=== PATIENT | male | born 1950 | race Caucasian/White ===

== ENCOUNTER 2020-07-09 13:52 | Outpatient (REF) | payer MEDICARE, SELFPAY ==
[2020-07-09 14:48] LABS: MANUAL DIFF FLAG NO
[2020-07-09 15:03] LABS: Basophils Absolute Auto 0.1 X10*3/uL (0.0-0.2); Basophils Percent Auto 0.6 % (0-2); Eosinophils Percent Auto 0.3 % (0-4); Hematocrit 43.6 % (42-52); Hemoglobin 14.7 g/dl (14.0-18.0); Imm Gran Abs Auto 0.04 X10*3/uL (0.00-0.03); Imm Gran Pct Auto 0.5 % (0.0-0.4); Lymphocytes Absolute Auto 1.4 X10*3/uL (1.2-4.9); Lymphocytes Percent Auto 17.8 % (20-40); Mean Corpuscular HGB Conc 33.7 g/dl (31.0-36.0); Mean Corpuscular Hemoglobin 33.9 pg (27.0-33.0); Mean Corpuscular Volume 100.5 fL (80-98); Mean Platelet Volume 10.1 fL (9.4-12.4); Monocytes Percent Auto 12.1 % (2-11); Neutrophils Absolute Auto 5.4 X10*3/uL (2.0-8.3); Neutrophils Percent Auto 68.7 % (45-73); Platelet Count 345 X10*3/uL (160-400); Red Blood Count 4.34 X10*6/uL (4.60-5.80); Red Cell Distribution Width 12.9 % (11.0-16.0); White Blood Count 7.9 X10*3/uL (4.8-10.8)
[2020-07-09 15:07] LABS: Estimated Average Glucose 103 mg/dL; Hemoglobin A1c % 5.2 %
[2020-07-09 15:12] LABS: Alanine Aminotransferase 51 U/L (0-40); Albumin Level 4.3 g/dL (3.5-5.0); Alkaline Phosphatase 55 U/L (39-117); Anion Gap 12 (12-20); Aspartate Amino Transferase 59 U/L (5-37); Bilirubin Total 0.5 mg/dL (0.0-1.0); Blood Urea Nitrogen 8 mg/dL (9-16); Calcium 9.3 mg/dL (8.4-10.2); Carbon Dioxide 28 mmol/L (22-29); Chloride 101 mmol/L (96-108); Cholesterol 150 mg/dL; Estimated Glomerular Filt Rate > 60; Glucose Random 84 mg/dL (60-115); HDL Cholesterol 80 mg/dL; LDL Cholesterol Calculated 52 mg/dl; Potassium 5.2 mmol/l (3.3-5.1); Sodium 136 mmol/L (135-145); Total Protein 6.9 g/dL (6.5-8.0); Triglycerides 93 mg/dL
[2020-07-09 15:36] LABS: Prostate Specific Antigen 0.77 ng/mL (<0.05-4.0); Thyroid Stimulating Hormone 1.23 mIU/mL (0.32-4.0)
== END 2020-07-09 13:53 | disposition home or self-care (01) ==
LOC: HO.LAB 13:52
PROVIDERS: PCP Internal Medicine; Visit Provider Internal Medicine
DX: E78.00 Pure hypercholesterolemia, unspecified (principal); I10 Essential (primary) hypertension; R73.01 Impaired fasting glucose; R74.01 Elevation of levels of liver transaminase levels; Z86.010 Personal history of colon polyps
CPT/HCPCS: 36415; 80053; 80061; 83036; 84153; 84443; 85025

== ENCOUNTER 2020-12-26 14:38 | Outpatient (REF) | payer MEDICARE, SELFPAY ==
[2020-12-26 15:55] LABS: Alanine Aminotransferase 36 U/L (0-40); Albumin Level 4.3 g/dL (3.5-5.0); Alkaline Phosphatase 45 U/L (39-117); Anion Gap 13 (12-20); Aspartate Amino Transferase 32 U/L (5-37); Bilirubin Total 0.7 mg/dL (0.0-1.0); Blood Urea Nitrogen 8 mg/dL (9-16); Calcium 9.4 mg/dL (8.4-10.2); Carbon Dioxide 27 mmol/L (22-29); Chloride 102 mmol/L (96-108); Estimated Glomerular Filt Rate > 60; Glucose Random 105 mg/dL (60-115); Potassium 4.7 mmol/L (3.3-5.1); Sodium 137 mmol/L (135-145); Total Protein 7.1 g/dL (6.5-8.0)
== END 2020-12-26 14:39 | disposition home or self-care (01) ==
LOC: HO.LAB 14:38
PROVIDERS: PCP Internal Medicine; Visit Provider Internal Medicine
DX: E78.00 Pure hypercholesterolemia, unspecified (principal); I10 Essential (primary) hypertension; R74.01 Elevation of levels of liver transaminase levels
CPT/HCPCS: 36415; 80053

== ENCOUNTER 2021-07-09 13:40 | Outpatient (REF) | payer MEDICARE, SELFPAY ==
[2021-07-09 13:52] LABS: MANUAL DIFF FLAG NO
[2021-07-09 14:43] LABS: Basophils Absolute Auto 0.1 X10*3/uL (0.0-0.2); Basophils Percent Auto 0.5 % (0-2); Eosinophils Percent Auto 0.1 % (0-4); Hematocrit 45.3 % (42-52); Hemoglobin 15.5 g/dl (14.0-18.0); Imm Gran Abs Auto 0.04 X10*3/uL (0.00-0.03); Imm Gran Pct Auto 0.4 % (0.0-0.4); Lymphocytes Absolute Auto 1.3 X10*3/uL (1.2-4.9); Lymphocytes Percent Auto 13.6 % (20-40); Mean Corpuscular HGB Conc 34.2 g/dl (31.0-36.0); Mean Corpuscular Hemoglobin 34.4 pg (27.0-33.0); Mean Corpuscular Volume 100.4 fL (80-98); Mean Platelet Volume 10.3 fL (9.4-12.4); Monocytes Absolute Auto 1.1 X10*3/uL (0.1-1.2); Monocytes Percent Auto 11.5 % (2-11); Neutrophils Absolute Auto 7.1 X10*3/uL (2.0-8.3); Neutrophils Percent Auto 73.9 % (45-73); Platelet Count 389 X10*3/uL (160-400); Red Blood Count 4.51 X10*6/uL (4.60-5.80); Red Cell Distribution Width 13.2 % (11.0-16.0); White Blood Count 9.6 X10*3/uL (4.8-10.8)
[2021-07-09 15:02] LABS: Alanine Aminotransferase 139 U/L (0-40); Albumin Level 4.3 g/dL (3.5-5.0); Alkaline Phosphatase 57 U/L (39-117); Anion Gap 16 (12-20); Aspartate Amino Transferase 123 U/L (5-37); Blood Urea Nitrogen 11 mg/dL (9-16); Calcium 9.4 mg/dL (8.4-10.2); Carbon Dioxide 25 mmol/L (22-29); Chloride 101 mmol/L (96-108); Cholesterol 213 mg/dL; Estimated Glomerular Filt Rate > 60; Glucose Random 101 mg/dL (60-115); HDL Cholesterol 56 mg/dL; LDL Cholesterol Calculated 87 mg/dl; Potassium 4.5 mmol/L (3.3-5.1); Sodium 137 mmol/L (135-145); Total Protein 7.3 g/dL (6.5-8.0); Triglycerides 354 mg/dL
== END 2021-07-09 13:41 | disposition home or self-care (01) ==
LOC: HO.LAB 13:40
PROVIDERS: PCP Internal Medicine; Visit Provider Internal Medicine
DX: E78.00 Pure hypercholesterolemia, unspecified (principal); F10.20 Alcohol dependence, uncomplicated; F17.211 Nicotine dependence, cigarettes, in remission; I10 Essential (primary) hypertension; R74.01 Elevation of levels of liver transaminase levels
CPT/HCPCS: 36415; 80053; 80061; 85025

== ENCOUNTER 2021-12-24 11:51 | Outpatient (REF) | payer MEDICARE, SELFPAY ==
[2021-12-24 13:03] LABS: Alanine Aminotransferase 41 U/L (0-40); Albumin Level 4.2 g/dL (3.5-5.0); Alkaline Phosphatase 69 U/L (39-117); Anion Gap 11 (12-20); Aspartate Amino Transferase 36 U/L (5-37); Bilirubin Total 0.4 mg/dL (0.0-1.0); Blood Urea Nitrogen 6 mg/dL (9-16); Calcium 9.7 mg/dL (8.4-10.2); Carbon Dioxide 29 mmol/L (22-29); Chloride 102 mmol/L (96-108); Cholesterol 145 mg/dL; Estimated Glomerular Filt Rate > 60; Glucose Random 80 mg/dL (60-115); HDL Cholesterol 57 mg/dL; LDL Cholesterol Calculated 56 mg/dl; Potassium 4.5 mmol/L (3.3-5.1); Sodium 137 mmol/L (135-145); Triglycerides 164 mg/dL
[2021-12-24 13:34] LABS: Vitamin B12 199 pg/mL (200-900)
[2021-12-25 08:18] LABS: HBsAGNum1 0.17 S/CO (0.00-0.99); Hepatitis A Antibody IgM 0.24 Index (0-0.79); Hepatitis B Surface Antigen Negative (Negative); ~Hepatitis A Antibody IgM Nonreactive (Nonreactive)
[2021-12-25 08:36] LABS: HBc Num1 0.06 S/CO (0.00-0.79); Hepatitis B Core Antibody Nonreactive (Nonreactive); ~HepC Num1 0.18 S/CO (0.00-0.79); ~Hepatitis B Surface Antibody NONREACTIVE (Nonreactive); ~Hepatitis C Antibody Nonreactive (Nonreactive)
== END 2021-12-24 11:52 | disposition home or self-care (01) ==
LOC: HO.LAB 11:51
PROVIDERS: PCP Internal Medicine; Visit Provider Internal Medicine
DX: E78.2 Mixed hyperlipidemia (principal); F10.10 Alcohol abuse, uncomplicated; F17.211 Nicotine dependence, cigarettes, in remission; I10 Essential (primary) hypertension; R74.01 Elevation of levels of liver transaminase levels
CPT/HCPCS: 36415; 80053; 80061; 82607; 86704; 86706; 86709; 86803; 87340

== ENCOUNTER 2022-07-05 11:42 | Outpatient (REF) | payer MEDICARE, SELFPAY ==
[2022-07-05 11:58] LABS: MANUAL DIFF FLAG NO
[2022-07-05 12:57] LABS: Basophils Percent Auto 0.4 % (0-2); Eosinophils Absolute Auto 0.1 X10*3/uL (0.0-0.4); Eosinophils Percent Auto 0.7 % (0-4); Hematocrit 46.7 % (42.0-52.0); Hemoglobin 15.7 g/dl (14.0-18.0); Imm Gran Abs Auto 0.06 X10*3/uL (0.00-0.03); Imm Gran Pct Auto 0.7 % (0.0-0.4); Lymphocytes Absolute Auto 1.5 X10*3/uL (1.2-4.9); Lymphocytes Percent Auto 16.6 % (20-40); Mean Corpuscular HGB Conc 33.6 g/dl (31.0-36.0); Mean Corpuscular Hemoglobin 34.7 pg (27.0-33.0); Mean Corpuscular Volume 103.1 fL (80.0-98.0); Mean Platelet Volume 10.8 fL (9.4-12.4); Monocytes Absolute Auto 1.4 X10*3/uL (0.1-1.2); Monocytes Percent Auto 15.5 % (2-11); Neutrophils Absolute Auto 5.9 x10*3/uL (2.0-8.3); Neutrophils Percent Auto 66.1 % (45-73); Platelet Count 413 X10*3/uL (160-400); Red Blood Count 4.53 X10*6/uL (4.60-5.80); White Blood Count 8.9 X10*3/uL (4.8-10.8)
[2022-07-05 13:33] LABS: Alanine Aminotransferase 33 U/L (0-40); Albumin Level 4.3 g/dL (3.5-5.0); Alkaline Phosphatase 53 U/L (39-117); Anion Gap 17 (12-20); Aspartate Amino Transferase 36 U/L (5-37); Bilirubin Total 0.3 mg/dL (0.0-1.0); Blood Urea Nitrogen 6 mg/dL (9-16); Calcium 9.6 mg/dL (8.4-10.2); Carbon Dioxide 25 mmol/L (22-29); Chloride 103 mmol/L (96-108); Cholesterol 146 mg/dL; Estimated Glomerular Filt Rate > 60; Glucose Random 89 mg/dL (60-115); HDL Cholesterol 65 mg/dL; LDL Cholesterol Calculated 54 mg/dl; Potassium 4.5 mmol/L (3.3-5.1); Sodium 140 mmol/L (135-145); Total Protein 7.2 g/dL (6.5-8.0); Triglycerides 137 mg/dL
[2022-07-05 13:57] LABS: Reflex LDLD? No
[2022-07-05 14:11] LABS: Vitamin B12 683 pg/mL (200-900)
== END 2022-07-05 11:43 | disposition home or self-care (01) ==
LOC: HO.LAB 11:42
PROVIDERS: PCP Internal Medicine; Visit Provider Internal Medicine
DX: Z12.5 Encounter for screening for malignant neoplasm of prostate (principal); D51.8 Other vitamin B12 deficiency anemias; E78.2 Mixed hyperlipidemia; I10 Essential (primary) hypertension; R74.01 Elevation of levels of liver transaminase levels
CPT/HCPCS: 36415; 80053; 80061; 82607; 84153; 85025

== ENCOUNTER 2022-12-20 11:41 | Outpatient (REF) | payer MEDICARE, SELFPAY ==
[2022-12-20 11:53] LABS: MANUAL DIFF FLAG NO
[2022-12-20 12:18] LABS: Basophils Absolute Auto 0.1 X10*3/uL (0.0-0.2); Basophils Percent Auto 0.7 % (0-2); Eosinophils Absolute Auto 0.1 X10*3/uL (0.0-0.4); Eosinophils Percent Auto 1.1 % (0-4); Hematocrit 45.6 % (42.0-52.0); Hemoglobin 15.4 g/dl (14.0-18.0); Imm Gran Abs Auto 0.05 X10*3/uL (0.00-0.03); Imm Gran Pct Auto 0.7 % (0.0-0.4); Lymphocytes Absolute Auto 1.5 X10*3/uL (1.2-4.9); Lymphocytes Percent Auto 21.1 % (20-40); Mean Corpuscular HGB Conc 33.8 g/dl (31.0-36.0); Mean Corpuscular Hemoglobin 34.9 pg (27.0-33.0); Mean Corpuscular Volume 103.4 fL (80.0-98.0); Mean Platelet Volume 9.7 fL (9.4-12.4); Monocytes Percent Auto 13.6 % (2-11); Neutrophils Absolute Auto 4.5 x10*3/uL (2.0-8.3); Neutrophils Percent Auto 62.8 % (45-73); Platelet Count 350 X10*3/uL (160-400); Red Blood Count 4.41 X10*6/uL (4.60-5.80); Red Cell Distribution Width 13.5 % (11.0-16.0); White Blood Count 7.1 X10*3/uL (4.8-10.8)
[2022-12-20 14:29] LABS: Alanine Aminotransferase 34 U/L (0-40); Albumin Level 3.8 g/dL (3.5-5.0); Alkaline Phosphatase 66 U/L (39-117); Anion Gap 13 (12-20); Aspartate Amino Transferase 35 U/L (5-37); Bilirubin Total 0.4 mg/dL (0.0-1.0); Blood Urea Nitrogen 8 mg/dL (9-16); Calcium 9.3 mg/dL (8.4-10.2); Carbon Dioxide 29 mmol/L (22-29); Chloride 104 mmol/L (96-108); Estimated Glomerular Filt Rate > 60; Glucose Random 138 mg/dL (60-115); Potassium 3.9 mmol/L (3.3-5.1); Sodium 142 mmol/L (135-145); Total Protein 6.7 g/dL (6.5-8.0)
== END 2022-12-20 11:42 | disposition home or self-care (01) ==
LOC: HO.LAB 11:41
PROVIDERS: PCP Internal Medicine; Visit Provider Internal Medicine
DX: D75.89 Other specified diseases of blood and blood-forming organs (principal); E78.00 Pure hypercholesterolemia, unspecified; I10 Essential (primary) hypertension; Z13.31 Encounter for screening for depression; Z86.010 Personal history of colon polyps
CPT/HCPCS: 36415; 80053; 85025

== ENCOUNTER 2023-07-06 10:47 | Outpatient (REF) | payer MEDICARE, SELFPAY ==
[2023-07-06 11:09] LABS: MANUAL DIFF FLAG NO
[2023-07-06 11:33] LABS: Basophils Absolute Auto 0.1 X10*3/uL (0.0-0.2); Basophils Percent Auto 0.7 % (0-2); Eosinophils Absolute Auto 0.1 X10*3/uL (0.0-0.4); Eosinophils Percent Auto 1.3 % (0-4); Hematocrit 49.3 % (42.0-52.0); Hemoglobin 16.7 g/dl (14.0-18.0); Imm Gran Abs Auto 0.02 X10*3/uL (0.00-0.03); Imm Gran Pct Auto 0.3 % (0.0-0.4); Lymphocytes Absolute Auto 1.4 X10*3/uL (1.2-4.9); Lymphocytes Percent Auto 20.3 % (20-40); Mean Corpuscular HGB Conc 33.9 g/dl (31.0-36.0); Mean Corpuscular Hemoglobin 33.9 pg (27.0-33.0); Mean Corpuscular Volume 100.2 fL (80.0-98.0); Mean Platelet Volume 9.3 fL (9.4-12.4); Monocytes Absolute Auto 0.8 X10*3/uL (0.1-1.2); Monocytes Percent Auto 11.5 % (2-11); Neutrophils Absolute Auto 4.4 x10*3/uL (2.0-8.3); Neutrophils Percent Auto 65.9 % (45-73); Platelet Count 358 X10*3/uL (160-400); Red Blood Count 4.92 X10*6/uL (4.60-5.80); Red Cell Distribution Width 12.6 % (11.0-16.0); White Blood Count 6.7 X10*3/uL (4.8-10.8)
[2023-07-06 11:35] LABS: Estimated Average Glucose 105 mg/dL; Hemoglobin A1c % 5.3 % (<6.0)
[2023-07-06 12:11] LABS: Alanine Aminotransferase 46 U/L (0-40); Alkaline Phosphatase 56 U/L (39-117); Anion Gap 13 (12-20); Aspartate Amino Transferase 45 U/L (5-37); Bilirubin Total 0.6 mg/dL (0.0-1.0); Blood Urea Nitrogen 11 mg/dL (9-16); Calcium 9.3 mg/dL (8.4-10.2); Carbon Dioxide 28 mmol/L (22-29); Chloride 101 mmol/L (96-108); Cholesterol 175 mg/dL (<200); Estimated Glomerular Filt Rate > 60; Glucose Random 100 mg/dL (60-115); HDL Cholesterol 68 mg/dL (>40); LDL Cholesterol Calculated 76 mg/dL (<100); Potassium 3.8 mmol/L (3.3-5.1); Sodium 138 mmol/L (135-145); Total Protein 7.5 g/dL (6.5-8.0); Triglycerides 157 mg/dL (<150)
[2023-07-06 12:26] LABS: Prostate Specific Antigen Scr 0.78 ng/mL (<0.05-4.0)
== END 2023-07-06 10:48 | disposition home or self-care (01) ==
LOC: HO.LAB 10:47
PROVIDERS: PCP Internal Medicine; Visit Provider Internal Medicine
DX: I10 Essential (primary) hypertension (principal); E78.00 Pure hypercholesterolemia, unspecified; F10.10 Alcohol abuse, uncomplicated; N40.0 Benign prostatic hyperplasia without lower urinary tract symptoms; R73.01 Impaired fasting glucose; Z12.5 Encounter for screening for malignant neoplasm of prostate
CPT/HCPCS: 36415; 80053; 80061; 83036; 84153; 85025

== ENCOUNTER 2023-09-01 10:29 | Outpatient (REF) | payer MEDICARE, SELFPAY ==
--- NOTE | ~2023-09-01 | US_ITS ---
EXAMINATION: US ABDOMEN COMPLETE CLINICAL INFORMATION: Elevated transaminase levels. COMPARISON: None available. TECHNIQUE: Real-time imaging of the abdominal viscera. Technically difficult study secondary to bowel gas and body habitus. FINDINGS: PANCREAS: Visualized portions of the pancreas are unremarkable however portions are obscured by bowel gas limiting evaluation. ABDOMINAL AORTA: The proximal, mid, and distal segments are normal in caliber. INFERIOR VENA CAVA: Visualized portions are normal. LIVER: The liver is normal in size. The liver contour is normal. Increased hepatic echogenicity which can be seen in the setting of hepatic steatosis or underlying liver disease. No focal hepatic lesion. There is no intrahepatic biliary duct dilatation seen. GALLBLADDER: Negative sonographic Bergman sign. The gallbladder is physiologically distended. Multiple mobile gallstones are present. No evidence of gallbladder wall thickening or pericholecystic fluid. COMMON BILE DUCT: Normal in caliber measuring 0.4 cm in diameter. RIGHT KIDNEY: Benign-appearing renal cyst measuring 1 cm. No follow up imaging is recommended. No hydronephrosis or renal calculi. The kidney measures 11.7 cm in maximum dimension. LEFT KIDNEY: Benign-appearing renal cyst measuring 1.9 cm. No follow up imaging is recommended. No hydronephrosis or renal calculi. The kidney measures 11.6 cm in maximum dimension. SPLEEN: Obscured by bowel gas. FREE FLUID: None. US/US abdomen complete IMPRESSION: 1. Increased hepatic echogenicity which can be seen in the setting of hepatic steatosis or underlying liver disease. 2. Cholelithiasis without evidence of acute cholecystitis. 3. Spleen is obscured by bowel gas limiting evaluation.
== END 2023-09-01 10:30 | disposition home or self-care (01) ==
LOC: HO.US 10:29
PROVIDERS: PCP Internal Medicine; Visit Provider Internal Medicine
DX: R74.01 Elevation of levels of liver transaminase levels (principal)
CPT/HCPCS: 76700

== ENCOUNTER 2023-10-10 10:41 | Outpatient (REF) | payer MEDICARE, SELFPAY ==
[2023-10-10 11:00] LABS: MANUAL DIFF FLAG NO
[2023-10-10 11:55] LABS: Basophils Percent Auto 0.3 % (0-2); Eosinophils Percent Auto 0.3 % (0-4); Hematocrit 48.2 % (42.0-52.0); Hemoglobin 16.6 g/dl (14.0-18.0); Imm Gran Abs Auto 0.05 X10*3/uL (0.00-0.03); Imm Gran Pct Auto 0.6 % (0.0-0.4); Lymphocytes Percent Auto 12.3 % (20-40); Mean Corpuscular HGB Conc 34.4 g/dl (31.0-36.0); Mean Corpuscular Hemoglobin 34.3 pg (27.0-33.0); Mean Corpuscular Volume 99.6 fL (80.0-98.0); Mean Platelet Volume 10.2 fL (9.4-12.4); Monocytes Absolute Auto 1.3 X10*3/uL (0.1-1.2); Neutrophils Absolute Auto 5.6 x10*3/uL (2.0-8.3); Neutrophils Percent Auto 70.5 % (45-73); Platelet Count 312 X10*3/uL (160-400); Red Blood Count 4.84 X10*6/uL (4.60-5.80); Red Cell Distribution Width 13.2 % (11.0-16.0)
[2023-10-10 12:12] LABS: Estimated Average Glucose 120 mg/dL; Hemoglobin A1c % 5.8 % (<6.0)
[2023-10-10 12:18] LABS: Prostate Specific Antigen Scr 0.76 ng/mL (<0.05-4.0)
[2023-10-10 12:26] LABS: Alanine Aminotransferase 39 U/L (0-40); Albumin Level 3.9 g/dL (3.5-5.0); Alkaline Phosphatase 50 U/L (39-117); Anion Gap 14 (12-20); Aspartate Amino Transferase 47 U/L (5-37); Bilirubin Total 0.5 mg/dL (0.0-1.0); Blood Urea Nitrogen 9 mg/dL (9-16); Calcium 9.1 mg/dL (8.4-10.2); Carbon Dioxide 28 mmol/L (22-29); Chloride 102 mmol/L (96-108); Cholesterol 165 mg/dL (<200); Estimated Glomerular Filt Rate > 60; Glucose Random 114 mg/dL (60-115); HDL Cholesterol 66 mg/dL (>40); LDL Cholesterol Calculated 75 mg/dL (<100); Potassium 3.5 mmol/L (3.3-5.1); Sodium 140 mmol/L (135-145); Total Protein 7.3 g/dL (6.5-8.0); Triglycerides 124 mg/dL (<150)
== END 2023-10-10 10:42 | disposition home or self-care (01) ==
LOC: HO.LAB 10:41
PROVIDERS: PCP Internal Medicine; Visit Provider Internal Medicine
DX: D75.89 Other specified diseases of blood and blood-forming organs (principal); E78.00 Pure hypercholesterolemia, unspecified; F10.20 Alcohol dependence, uncomplicated; I10 Essential (primary) hypertension; Z12.5 Encounter for screening for malignant neoplasm of prostate
CPT/HCPCS: 36415; 80053; 80061; 83036; 84153; 85025

== ENCOUNTER 2024-02-09 12:35 | Outpatient (REF) | payer MEDICARE, SELFPAY ==
--- NOTE | ~2024-02-09 | XR_ITS ---
EXAMINATION: XR CHEST CLINICAL INFORMATION: CHF, SOB, COPD COMPARISON: CT chest screening 01/26/2019, chest radiograph 02/01/2013 TECHNIQUE: 2 views of the chest were obtained. FINDINGS: The lungs are moderately hyperinflated. Slight streaky opacity in the medial right lung base may represent a combination of pericardial fat pad and atelectasis and/or pneumonia. No interstitial pulmonary edema or pneumothorax. The cardiomediastinal silhouette is within normal limits. There are no pleural effusions. Multilevel degenerative changes of the thoracic spine are seen. XR/XR chest 2V IMPRESSION: Slight streaky opacity in the medial right lung base may represent a combination of pericardial fat pad and atelectasis and/or pneumonia.
[2024-02-09 13:10] LABS: MANUAL DIFF FLAG NO
[2024-02-09 13:33] LABS: Basophils Absolute Auto 0.1 X10*3/uL (0.0-0.2); Basophils Percent Auto 0.4 % (0-2); Eosinophils Percent Auto 0.4 % (0-4); Hematocrit 49.7 % (42.0-52.0); Hemoglobin 17.2 g/dl (14.0-18.0); Imm Gran Abs Auto 0.06 X10*3/uL (0.00-0.03); Imm Gran Pct Auto 0.5 % (0.0-0.4); Lymphocytes Percent Auto 9.2 % (20-40); Mean Corpuscular HGB Conc 34.6 g/dl (31.0-36.0); Mean Platelet Volume 9.8 fL (9.4-12.4); Monocytes Absolute Auto 1.3 X10*3/uL (0.1-1.2); Monocytes Percent Auto 11.7 % (2-11); Neutrophils Absolute Auto 8.7 x10*3/uL (2.0-8.3); Neutrophils Percent Auto 77.8 % (45-73); Platelet Count 335 X10*3/uL (160-400); Red Blood Count 4.92 X10*6/uL (4.60-5.80); Red Cell Distribution Width 13.2 % (11.0-16.0); White Blood Count 11.2 X10*3/uL (4.8-10.8)
[2024-02-09 13:57] LABS: Estimated Average Glucose 123 mg/dL; Hemoglobin A1c % 5.9 % (<6.0)
[2024-02-09 14:18] LABS: Alanine Aminotransferase 44 U/L (0-40); Albumin Level 4.2 g/dL (3.5-5.0); Alkaline Phosphatase 56 U/L (39-117); Anion Gap 16 (12-20); Aspartate Amino Transferase 40 U/L (5-37); Bilirubin Total 0.5 mg/dL (0.0-1.0); Blood Urea Nitrogen 11 mg/dL (9-16); Calcium 9.8 mg/dL (8.4-10.2); Carbon Dioxide 24 mmol/L (22-29); Chloride 105 mmol/L (96-108); Cholesterol 202 mg/dL (<200); Estimated Glomerular Filt Rate > 60; Glucose Random 105 mg/dL (60-115); HDL Cholesterol 75 mg/dL (>40); LDL Cholesterol Calculated 83 mg/dL (<100); Sodium 141 mmol/L (135-145); Total Protein 7.7 g/dL (6.5-8.0); Triglycerides 221 mg/dL (<150)
== END 2024-02-09 12:36 | disposition home or self-care (01) ==
LOC: HO.XRAY 12:35
PROVIDERS: PCP Internal Medicine; Visit Provider Internal Medicine
DX: F10.10 Alcohol abuse, uncomplicated (principal); I11.0 Hypertensive heart disease with heart failure; I50.9 Heart failure, unspecified; K76.0 Fatty (change of) liver, not elsewhere classified; R06.02 Shortness of breath; J44.9 Chronic obstructive pulmonary disease, unspecified
CPT/HCPCS: 36415; 71046; 80053; 80061; 83036; 85025

== ENCOUNTER 2024-03-16 13:39 | Outpatient (AMB) | payer MEDICARE, SELFPAY ==
--- NOTE | 2024-03-16 13:48 | MHC.OFFVIS ---
Vital Signs 03/16/24 13:49 Height 5 ft 11 in Weight 256 lb 13.416 oz BMI 35.8 BP 142/82 H Blood Pressure Location Lt brachial Position Sitting Pulse 101 H Pulse Source Doppler Pulse Oximetry (%) 93 Oxygen Delivery Method Room Air Intake Visit Reasons: COPD Allergies No Known Allergies Allergy (Verified 03/16/24 13:51) HPI HPI COPD: Details: 73-year-old gentleman, former 50+ pack-year smoker, quit 6 years prior with underlying moderate COPD referred for evaluation of underlying dyspnea on exertion. Patient has been using BrezTri with suboptimal control of his symptoms. He does have family history of lung cancer in his brother and father who were ever smokers. He denies prior personal history of lung disease. Patient does complain of significant dyspnea on exertion after walking for about 20-30 years and also some lower extremity edema, but no orthopnea. [facility] Social History (Updated 03/16/24 @ 13:52 by Maria Guadalupe Villalpando [facility]) Patient Tobacco Use Status: Former Tobacco user Tobacco use type: Cigarette Years Smoked: quit 8 years ago, started at 13 years old, 2ppd Review of Systems Const Denies daytime sleepiness, Denies excessive sweating, Denies fatigue, Denies fever(s), Denies lethargy, Denies malaise, Denies night sweats, Denies snoring and Denies weight loss Eyes Denies blurry vision and Denies itchy eyes ENT Denies nasal congestion, Denies post nasal drip, Denies sinus pain, Denies sinus pressure and Denies other ( Thrush) Card Denies chest pain, Reports pedal edema, Denies dyspnea, Reports dyspnea on exertion, Denies orthopnea and Denies paroxysmal nocturnal dyspnea Resp Denies cough, Denies hemoptysis, Denies excessive phlegm production, Denies dyspnea, Reports dyspnea on exertion, Denies snoring and Denies wheezing GI Denies abdominal pain and Denies heartburn Musc Denies myalgias, Denies arthralgias and Denies joint swelling Skin/Breast Denies rash Neuro Denies memory loss and Denies seizure-like activity Psych Denies abnormal sleep pattern, Denies anxiety and Denies memory loss Endo Denies excessive sweating, Denies fatigue and Denies heat intolerance Aashish/Lymph Denies easy bruising Aller/Immun Denies itchy eyes, Denies seasonal rhinorrhea and Denies wheezing Physical Exam Vital Signs: Last Vital Signs Pulse 101 H 03/16/24 13:49 BP 142/82 H 03/16/24 13:49 Pulse Ox 93 03/16/24 13:49 Oxygen Delivery Method Room Air 03/16/24 13:49 BMI result Body Mass Index 35.8 Const General: no acute distress and alert Nutritional Appearance: obese Orientation/consciousness: Other orientation findings ( oriented) HEENT Head: Yes atraumatic Eyes General: appearance normal, both eyes and all related structures Sclerae: sclerae normal EOM: EOMs intact bilaterally Neck Neck: Yes supple Lymphatic: no lymphadenopathy noted Resp Effort & Inspection: normal respiratory effort and no use of accessory muscles Auscultation: clear to auscultation bilaterally Cardio Rate: regular rate Rhythm: regular rhythm Heart sounds: no gallops, no murmurs and no rubs Skin General skin exam: other ( warm) Extrem General: No clubbing, No cyanosis and Yes edema (1+ bilateral) Office Procedures Nebulizer Treatment Nebulizer Treatment 65557-Crjroxrzr/MDI RX initial, or Nebulizer Subsequent Treatment Spirometry Testing Spirometry Comments: pre and post Spriometry done with ipratropium-albuterol in the office, Dr. Reece has the results results scanned to his chart. 39765- Spirometry Office Meds ipratropium 0.5 mg-albuterol 3 mg (2.5 mg base)/3 mL nebulization soln Performing Provider: Rush Reece MD Performing Location: [facility] Administered by: Concha Carey LPN on 03/16/24 14:21 Dose Route Admin Location Dispensed Lot Number Expiration Date [facility] Hand Crown Pouncer 3 mL inhalation 3 mL [id number] 01/16/26 44069-577-46 [facility] Assessment & Plan Assessment & Plan (1) COPD (chronic obstructive pulmonary disease): Code(s): J44.9 - Chronic obstructive pulmonary disease, unspecified Category: Medical Plan: Results of in office spirometry reviewed, underlying moderate COPD with poor bronchodilator response, but significant symptomatic response to duo nebs. Will continue BrezTri and add duo nebs and albuterol MDI. (2) Personal history of nicotine dependence: Code(s): Z87.891 - Personal history of nicotine dependence Category: Medical Plan: Will obtain lung cancer screening CT chest. Orders: Orders AMB Nebulizer Treatment Today J44.9 - Chronic obstructive pulmonary disease, unspecified AMB Spirometry Testing Today J44.9 - Chronic obstructive pulmonary disease, unspecified CT lung screening Today Z87.891 - Personal history of nicotine dependence Medications: New ipratropium-albuterol 0.5 mg-3 mg(2.5 mg base)/3 mL 3 mL inhalation BID 180 mL 6RF Coding Level of Care Code New Pt Level 4 (22229) Diagnoses COPD (chronic obstructive pulmonary disease) J44.9 Personal history of nicotine dependence Z87.891 CPT Codes Nebulizer Treatment - Nebulizer Treatment, initial or subsequent: 54603-Rvblodywn/MDI RX initial, or Nebulizer Subsequent Treatment ([id number]) Spirometry - CPT: 48094- Spirometry ([id number])
[2024-03-16 13:49] VITALS: BP 142/82; PULSE 101; O2SAT 93; BMI 35.8
== END 2024-03-16 14:37 | disposition home or self-care (01) ==
PROVIDERS: PCP Internal Medicine; Visit Provider Internal Medicine Pulmonary Disease
DX: J44.9 Chronic obstructive pulmonary disease, unspecified (principal); Z87.891 Personal history of nicotine dependence
CPT/HCPCS: 94010; 99204

== ENCOUNTER → 2024-03-16 13:39 | Outpatient (BNVA) | payer MEDICARE, SELFPAY | PROVIDERS: PCP Internal Medicine; Visit Provider Internal Medicine Pulmonary Disease | DX: J44.9 Chronic obstructive pulmonary disease, unspecified (principal); Z87.891 Personal history of nicotine dependence | CPT/HCPCS: 94010; 94640; 99202 ==

== ENCOUNTER 2024-04-13 10:44 | Outpatient (AMB) | payer MEDICARE, SELFPAY ==
[2024-04-13 10:45] VITALS: BP 122/82; PULSE 120; O2SAT 94; BMI 33.5
--- NOTE | 2024-04-13 10:45 | A.OFFVIS_ITS ---
Vital Signs 04/13/24 10:45 Height 5 ft 11 in Weight 240 lb BMI 33.5 BP 122/82 Blood Pressure Location Rt brachial Position Sitting Pulse 120 H Pulse Source Doppler Pulse Oximetry (%) 94 Oxygen Delivery Method Room Air Intake Visit Reasons: copd Allergies No Known Allergies Allergy (Verified 04/13/24 10:51) HPI HPI copd: Details: 73-year-old gentleman, former 50+ pack-year smoker, quit 6 years prior with underlying moderate COPD referred for evaluation of underlying dyspnea on exertion. Patient has been using BrezTri with suboptimal control of his symptoms. He does have family history of lung cancer in his brother and father who were ever smokers. He denies prior personal history of lung disease. Patient does complain of significant dyspnea on exertion after walking for about 20-30 years and also some lower extremity edema, but no orthopnea. After the last office visit patient has not received his duo nebs so his symptoms are not as well controlled. His CT lung cancer screening is also pending. He denies acute exacerbation. [facility] Social History (Updated 03/16/24 @ 13:52 by Maria Guadalupe Villalpando [facility]) Patient Tobacco Use Status: Former Tobacco user Tobacco use type: Cigarette Years Smoked: quit 8 years ago, started at 13 years old, 2ppd Review of Systems Const Denies daytime sleepiness, Denies excessive sweating, Denies fatigue, Denies fever(s), Denies lethargy, Denies malaise, Denies night sweats, Denies snoring and Denies weight loss Eyes Denies blurry vision and Denies itchy eyes ENT Denies nasal congestion, Denies post nasal drip, Denies sinus pain, Denies sinus pressure and Denies other ( Thrush) Card Denies chest pain, Denies pedal edema, Denies dyspnea, Reports dyspnea on exertion, Denies orthopnea and Denies paroxysmal nocturnal dyspnea Resp Denies cough, Denies hemoptysis, Denies excessive phlegm production, Denies dyspnea, Reports dyspnea on exertion, Denies snoring and Denies wheezing GI Denies abdominal pain and Denies heartburn Musc Denies myalgias, Denies arthralgias and Denies joint swelling Skin/Breast Denies rash Neuro Denies memory loss and Denies seizure-like activity Psych Denies abnormal sleep pattern, Denies anxiety and Denies memory loss Endo Denies excessive sweating, Denies fatigue and Denies heat intolerance Aashish/Lymph Denies easy bruising Aller/Immun Denies itchy eyes, Denies seasonal rhinorrhea and Denies wheezing Physical Exam Vital Signs: Last Vital Signs Pulse 120 H 04/13/24 10:45 BP 122/82 04/13/24 10:45 Pulse Ox 94 04/13/24 10:45 Oxygen Delivery Method Room Air 04/13/24 10:45 BMI result Body Mass Index 33.5 Const General: no acute distress and alert Nutritional Appearance: obese Orientation/consciousness: Other orientation findings ( oriented) HEENT Head: Yes atraumatic Eyes General: appearance normal, both eyes and all related structures Sclerae: sclerae normal EOM: EOMs intact bilaterally Neck Neck: Yes supple Lymphatic: no lymphadenopathy noted Resp Effort & Inspection: normal respiratory effort and no use of accessory muscles Auscultation: clear to auscultation bilaterally Cardio Rate: regular rate Rhythm: regular rhythm Heart sounds: no gallops, no murmurs and no rubs Skin General skin exam: other ( warm) Extrem General: No clubbing, No cyanosis and No edema Assessment & Plan Assessment & Plan (1) COPD (chronic obstructive pulmonary disease): Code(s): J44.9 - Chronic obstructive pulmonary disease, unspecified Category: Medical Plan: Suboptimally controlled as patient has not received his duo nebs. Restart DuoNebs, continue BrezTri and albuterol MDI. (2) Personal history of nicotine dependence: Code(s): Z87.891 - Personal history of nicotine dependence Category: Medical Plan: Lung cancer screening CT chest is pending for April of 2024. Coding Level of Care Code Est Pt Level 4 (62397) Diagnoses COPD (chronic obstructive pulmonary disease) J44.9 Personal history of nicotine dependence Z87.891
== END 2024-04-13 11:13 | disposition home or self-care (01) ==
PROVIDERS: PCP Internal Medicine; Visit Provider Internal Medicine Pulmonary Disease
DX: J44.9 Chronic obstructive pulmonary disease, unspecified (principal); Z87.891 Personal history of nicotine dependence
CPT/HCPCS: 99214

== ENCOUNTER → 2024-04-13 10:44 | Outpatient (BNVA) | payer MEDICARE, SELFPAY | PROVIDERS: PCP Internal Medicine; Visit Provider Internal Medicine Pulmonary Disease | DX: J44.9 Chronic obstructive pulmonary disease, unspecified (principal); Z87.891 Personal history of nicotine dependence | CPT/HCPCS: 99212 ==

== ENCOUNTER 2024-05-08 10:42 | Outpatient (REF) | payer MEDICARE, SELFPAY ==
--- NOTE | ~2024-05-08 | CT_ITS ---
EXAMINATION: CT LOW-DOSE SCREENING CHEST WITHOUT CONTRAST CLINICAL INFORMATION: Personal history of nicotine dependence. The patient has a 104 pack-year history of smoking, having quit 8 years ago. COMPARISON: CT chest 01/26/2019 and 12/28/2017. TECHNIQUE: Multidetector volumetric CT imaging of the chest is performed on a Siemens SOMATOM Definition scanner without contrast using low dose technique. Additional 2D coronal and sagittal reformatted images and axial 3D maximum intensity projection (MIP) images are generated on the CT workstation. This CT examination was performed using dose optimization techniques as appropriate, variously including the following: *Automated exposure control *Adjustment of mA and/or kV according to patient size (this includes techniques or standardized protocols for targeted exams where dose is matched to indication/reason for exam; i.e. extremities or head) *Use of iterative reconstruction technique TOTAL EXAM DLP: 72 mGy-cm. CTDIvol: 2.04 mGy. FINDINGS: PULMONARY NODULES: Multiple scattered calcified pulmonary granulomas are seen. No worrisome noncalcified nodule is present. LUNGS: Lungs bilaterally symmetrically expanded. There are mild emphysematous changes present. Mild peribronchial thickening is seen. There is some subtle increased subpleural increased reticular markings seen especially in the right lung, increased from the 2019 study. No effusion or pneumothorax. Central airways patent. MEDIASTINUM: No mediastinal, hilar or axillary adenopathy or free fluid collection. CORONARY ARTERY CALCIFICATION: None visualized on this study. THYROID GLAND: Unremarkable to the extent seen. CARDIOVASCULAR STRUCTURES: Aortic and heart size normal. No pericardial effusion. CHEST WALL/AXILLA: Unremarkable. UPPER ABDOMEN: There is cholelithiasis partially visualized. OSSEOUS STRUCTURES: No suspicious focal findings. CT/CT lung screening IMPRESSION: No findings seen suspicious for malignancy. Incidental note made of calcified granulomas, cholelithiasis, question of interstitial lung disease, right greater than left. ASSESSMENT: 1. Lung-RADS Category 1: Negative. There are no nodules or there are definitely benign nodules. N/A. 2. Lung-RADS Category S: Negative. There are no clinically significant or potentially clinically significant findings not related to the lungs requiring urgent additional evaluation. RECOMMENDATION: Continued routine annual low-dose CT lung screening in 1 year is recommended. An order for CT CHEST LOW DOSE CANCER SCREENING ([id number]) can be placed. Electronically signed by: Dylan Wood MD 05/23/2024 12:16 AM EDT RP
== END 2024-05-08 10:43 | disposition home or self-care (01) ==
LOC: HO.CT 10:42
PROVIDERS: PCP Internal Medicine; Visit Provider Internal Medicine Pulmonary Disease
DX: Z12.2 Encounter for screening for malignant neoplasm of respiratory organs (principal); Z87.891 Personal history of nicotine dependence
CPT/HCPCS: 71271

== ENCOUNTER 2024-06-05 10:44 | Outpatient (AMB) | payer MEDICARE, SELFPAY ==
[2024-06-05 10:46] VITALS: BP 128/86; PULSE 116; O2SAT 93; BMI 35.3
--- NOTE | 2024-06-05 10:46 | A.OFFVIS_ITS ---
Vital Signs 06/05/24 10:46 Height 5 ft 11 in Weight 253 lb BMI 35.3 BP 128/86 Blood Pressure Location Lt brachial Position Sitting Pulse 116 H Pulse Source Doppler Pulse Oximetry (%) 93 Oxygen Delivery Method Room Air Intake Visit Reasons: COPD Allergies No Known Allergies Allergy (Verified 04/13/24 10:51) HPI HPI COPD: Details: 73-year-old gentleman, former 50+ pack-year smoker, quit 6 years prior with underlying moderate COPD referred for evaluation of underlying dyspnea on exertion. Patient has been using BrezTri with suboptimal control of his symptoms. He does have family history of lung cancer in his brother and father who were ever smokers. He denies prior personal history of lung disease. Patient does complain of significant dyspnea on exertion after walking for about 20-30 years and also some lower extremity edema, but no orthopnea. After the last office visit patient restarted duo nebs and reports improved symptom control. He also has completed his CT lung cancer screening that shows no worrisome nodules. [facility] Social History (Updated 03/16/24 @ 13:52 by Maria Guadalupe Villalpando [facility]) Patient Tobacco Use Status: Former Tobacco user Tobacco use type: Cigarette Years Smoked: quit 8 years ago, started at 13 years old, 2ppd Review of Systems Const Denies daytime sleepiness, Denies excessive sweating, Denies fatigue, Denies fever(s), Denies lethargy, Denies malaise, Denies night sweats, Denies snoring and Denies weight loss Eyes Denies blurry vision and Denies itchy eyes ENT Denies nasal congestion, Denies post nasal drip, Denies sinus pain, Denies sinus pressure and Denies other ( Thrush) Card Denies chest pain, Denies pedal edema, Denies dyspnea, Denies orthopnea and Denies paroxysmal nocturnal dyspnea Resp Denies cough, Denies hemoptysis, Denies excessive phlegm production, Denies dyspnea, Denies snoring and Denies wheezing GI Denies abdominal pain and Denies heartburn Musc Denies myalgias, Denies arthralgias and Denies joint swelling Skin/Breast Denies rash Neuro Denies memory loss and Denies seizure-like activity Psych Denies abnormal sleep pattern, Denies anxiety and Denies memory loss Endo Denies excessive sweating, Denies fatigue and Denies heat intolerance Aashish/Lymph Denies easy bruising Aller/Immun Denies itchy eyes, Denies seasonal rhinorrhea and Denies wheezing Physical Exam Vital Signs: Last Vital Signs Pulse 116 H 06/05/24 10:46 BP 128/86 06/05/24 10:46 Pulse Ox 93 06/05/24 10:46 Oxygen Delivery Method Room Air 06/05/24 10:46 BMI result Body Mass Index 35.3 Const General: no acute distress and alert Nutritional Appearance: obese Orientation/consciousness: Other orientation findings ( oriented) HEENT Head: Yes atraumatic Eyes General: appearance normal, both eyes and all related structures Sclerae: sclerae normal EOM: EOMs intact bilaterally Neck Neck: Yes supple Lymphatic: no lymphadenopathy noted Resp Effort & Inspection: normal respiratory effort and no use of accessory muscles Auscultation: clear to auscultation bilaterally Cardio Rate: regular rate Rhythm: regular rhythm Heart sounds: no gallops, no murmurs and no rubs Skin General skin exam: other ( warm) Extrem General: No clubbing, No cyanosis and No edema Assessment & Plan Assessment & Plan (1) COPD (chronic obstructive pulmonary disease): Code(s): J44.9 - Chronic obstructive pulmonary disease, unspecified Category: Medical Plan: Well controlled on current regimen of BrezTri and duo nebs. Continue current regimen. (2) Personal history of nicotine dependence: Code(s): Z87.891 - Personal history of nicotine dependence Category: Medical Plan: Results of lung cancer screening CT chest reviewed, no worrisome nodules noted. Continue with yearly screening. Orders: Orders CT lung screening 05/05/25 Z87.891 - Personal history of nicotine dependence Coding Level of Care Code Est Pt Level 4 (08890) Diagnoses COPD (chronic obstructive pulmonary disease) J44.9 Personal history of nicotine dependence Z87.891
== END 2024-06-05 11:02 | disposition home or self-care (01) ==
PROVIDERS: PCP Internal Medicine; Visit Provider Internal Medicine Pulmonary Disease
DX: J44.9 Chronic obstructive pulmonary disease, unspecified (principal); Z87.891 Personal history of nicotine dependence
CPT/HCPCS: 99214

== ENCOUNTER → 2024-06-05 10:44 | Outpatient (BNVA) | payer MEDICARE, SELFPAY | PROVIDERS: PCP Internal Medicine; Visit Provider Internal Medicine Pulmonary Disease | DX: J44.9 Chronic obstructive pulmonary disease, unspecified (principal); Z87.891 Personal history of nicotine dependence | CPT/HCPCS: 99212 ==

== ENCOUNTER 2024-08-10 21:05 | Inpatient (IN) | payer MEDICARE, SELFPAY ==
--- NOTE | ~2024-08-10 | CT_ITS ---
EXAMINATION: CT HEAD WITHOUT CONTRAST CT CERVICAL SPINE WITHOUT CONTRAST CLINICAL INFORMATION: Head and neck trauma. COMPARISON: Brain MRI from 07/12/2013. TECHNIQUE: Contiguous axial imaging was performed from the skull base to vertex without intravenous administration of contrast. Contiguous axial imaging was performed from the upper chest through the skull base without intravenous administration of contrast. Coronal and sagittal reformats were obtained at the acquisition workstation. This CT examination was performed using dose optimization techniques as appropriate, variously including the following: *Automated exposure control. *Adjustment of mA and/or kV according to patient size (this includes techniques or standardized protocols for targeted exams where dose is matched to indication/reason for exam; i.e. extremities or head). *Use of iterative reconstruction technique. DLP: 1198 mGy-cm FINDINGS: Head: Lacunar infarct of the left thalamus. No additional loss of carter-white matter differentiation. No evidence of acute intracranial hemorrhage. Scattered and partially confluent hypoattenuation in the periventricular and deep white matter are consistent with moderate microangiopathy. Proportional prominence of the ventricles and sulcal spaces without evidence of obstructive hydrocephalus. No abnormal mass effect or midline shift. No extra-axial fluid collections. Calcific atherosclerotic disease of the intracranial internal carotid arteries. No hyperdense vessel sign. No acute soft tissue or osseous abnormalities. Mild mucosal thickening of the paranasal sinuses. The mastoid air cells and middle ear cavities are clear. Cervical Spine: The atlantooccipital and atlantoaxial articulations remain well aligned. Moderate degenerative arthropathy of the atlantodental articulation. Straightening of the normal cervical lordosis. Otherwise, there is anatomic alignment of the vertebral bodies and posterior elements. No evidence of acute fracture or subluxation. The vertebral body heights are maintained. Moderate degenerative disc disease from C4-C7. Mild degenerative disc disease at all additional levels. Facet and uncovertebral joint arthropathy leads to osseous encroachment on the neural foramina from C3-T1. Moderate bridging anterior osteophytosis from C2-C7. There is no prevertebral soft tissue swelling. The thyroid gland and remaining cervical soft tissues are within normal limits. The lung apices demonstrate no abnormalities. CT/CT cervical spine wo IV con IMPRESSION: 1. No evidence of acute intracranial hemorrhage or edematous territorial infarction. 2. Lacunar infarct of the left thalamus. Moderate underlying microangiopathy and generalized cerebral volume loss. 3. No evidence of acute fracture or traumatic subluxation of the cervical spine. Moderate multilevel degenerative spondyloarthropathy of the cervical spine. Electronically signed by: Sidney Chu DO 08/11/2024 12:18 AM RAOUL MORALES
--- NOTE | ~2024-08-10 | XR_ITS ---
EXAMINATION: XR CHEST CLINICAL INFORMATION: dyspnea COMPARISON: Chest radiograph 02/09/2024. CT chest 05/08/2024. TECHNIQUE: Frontal view of the chest was obtained. FINDINGS: Normal appearance of the cardiomediastinal structures. No effusions or pneumothoraces. Normal pattern of pulmonary vasculature. No focal pulmonary consolidation. XR/XR chest 1V IMPRESSION: No acute cardiopulmonary abnormalities. Electronically signed by: Bernabe Johnson MD 08/11/2024 12:25 AM RAOUL
[2024-08-10 21:09] VITALS: BP 148/60; BP 150/90; PULSE 82; PULSE 88; RESP 28; O2SAT 100; BMI 35.7
--- NOTE | 2024-08-10 21:12 | ECG_ITS ---
Test Reason : DYSPNEA Blood Pressure : / mmHG Vent. Rate : 075 BPM Atrial Rate : 075 BPM P-R Int : 124 ms QRS Dur : 112 ms QT Int : 412 ms P-R-T Axes : 005 064 072 degrees QTc Int : 460 ms Normal sinus rhythm Normal ECG When compared with ECG of 21-OCT-2015 15:13, No significant change was found Referred By: Lexi Conway Electronically Signed By:SEVERINO BALDERAS MD
--- NOTE | 2024-08-10 21:13 | ED_ITS ---
HPI - Fall General Chief Complaint: Fall Stated Complaint: FALL Time Seen by Provider: 08/10/24 21:07 Source: patient and EMS Mode of arrival: EMS Limitations: other (ETOH) History of Present Illness ED Provider: ELAINE HPI Narrative: 73 yo male with PMH of HLD, HTN, ETOH use, COPD not on home O2 here with c/o having 5 beers at the [employer] and was walking home - fell on the sidewalk he states he might have tripped he denies LOC or headstrike he is not on thinners. He was incontinent of stool no seizure reported. Was on ground 20 min. He has COPD and notes that his breathing worsened after the fall. He did scrape his L elbow. EMS gave duoneb en route. Prior to the bar he states he was fine and did not feel ill no CP/SOB. He remembers the fall MD complaint: fall Onset (ago): minute(s) (30) Fall from: standing Fall witnessed: no Place fall occurred: street Loss of consciousness: none Prolonged down time: no Symptoms prior to fall: none Context: tripped/slipped Location of injury - extremities: left: elbow Severity: mild Associated symptoms (after fall): shortness of breath Related Data Home Medications ?Medication ?Instructions ?Recorded ?Confirmed budesonide 160 mcg-glycopyr 9 inh inhalation 03/16/24 mcg-formot 4.8 mcg/actuation HFA inhaler (Breztri Aerosphere) cyanocobalamin (vitamin B-12) 3,000 mcg sublingual DAILY 03/16/24 3,000 mcg sublingual lozenge lisinopril 30 mg tablet 30 mg PO DAILY 03/16/24 pravastatin 40 mg tablet 40 mg PO DAILY 03/16/24 thiamine HCl (vitamin B1) 100 mg 100 mg PO DAILY 03/16/24 tablet Previous Rx's ?Medication ?Instructions ?Recorded ipratropium 0.5 mg-albuterol 3 mg 3 ml inhalation BID #180 mL 03/16/24 (2.5 mg base)/3 mL nebulization soln Allergies Allergy/AdvReac Type Severity Reaction Status Date / Time No Known Allergies Allergy Verified 08/10/24 21:21 Review of Systems 2 Review of Systems: Constitutional : No Fever, No Chills ENT/Mouth : No Hoarseness, No sore throat, No Rhinorrhea Eyes: No Redness, No Discharge, No Vision Changes Cardiovascular : No Chest Pain, positive SOB, positive Dyspnea on Exertion, No Edema Respiratory : positive Cough, No Sputum, positive Wheezing, Gastrointestinal : No Nausea, No Vomiting, No Diarrhea, No abdominal Pain Genitourinary : No Dysuria, No Hematuria Musculoskeletal : No joint pain, No Myalgias Skin : No rash, pos abrasion Neuro : No Weakness, No Numbness, No Headache Psych : No anxiety, depression All other systems reviewed and are negative [facility] Past Medical History Attestation statement: The following information was validated with the patient. Source: old records reviewed Medical History (Updated 08/10/24 @ 23:09 by Lexi Conway DO) COPD (chronic obstructive pulmonary disease) Personal history of nicotine dependence Social History Social History Alcohol intake: current Alcohol intake frequency: 3 or more drinks per day Patient Tobacco Use Status: Former Tobacco user Tobacco use type: Cigarette Years Smoked: quit 8 years ago, started at 13 years old, 2ppd Smoked in Last 30 Days: No Use of substances other than those prescribed or required for medical reasons: No Advance Directives: No Advance Directives Information Provided: No Physical Exam 2 Vital Signs: Vital Signs: Last Vital Signs Temp 97.8 F 08/11/24 00:00 Pulse 83 08/11/24 00:00 Resp 28 H 08/11/24 00:00 BP 129/69 08/11/24 00:00 Pulse Ox 92 08/11/24 00:00 O2 Del Method Nasal Cannula 08/11/24 00:00 O2 Flow Rate 1 08/11/24 00:00 Oxygen Flow Rate 2 08/10/24 21:09 BMI result Body Mass Index 35.7 Appearance: Alert. Oriented X2 person and place. Mild acute distress. Eyes: Pupils equal, round and reactive to light. ENT: Pharynx normal. Neck: Normal inspection. Neck supple. CVS: Normal heart rate and rhythm. Pulses normal. Respiratory: Mild respiratory distress - tachypnea and short phrases. Breath sounds diminished throughout and exp wheezes Abdomen: Soft and nontender. : incontinent of stool Skin: Skin warm and dry. Normal skin color. Normal skin turgor. Extremities: No lower extremity edema. L elbow superficial abrasion he has normal and full ROM Neuro: Oriented X 2. No motor deficit. No sensory deficit. Course Course Course Narrative: lactic acidosis due to albuterol and ETOH use not infection or severe sepsis Reevaluation(s) Reevaluation #1: 500ns ordered by Dr. Jose Alberto noel 3 Medications Administered Discontinued Medications Generic Name Dose Route Start Last Admin Trade Name Morisq PRN Reason Stop Dose Admin Albuterol Sulfate 7.5 mg/ 10 mg 08/10/24 21:27 08/10/24 21:37 Albuterol Sulfate 2.5 mg INHALE 08/10/24 21:28 10 mg ONCE ONE Administration Ceftriaxone Sodium 1 gm 08/10/24 22:14 08/10/24 22:46 Ceftriaxone Sodium 1 Gm Vial IVPUSH 08/10/24 22:15 1 gm ONCE ONE Administration Thiamine HCl 200 mg/ Sodium 102 mls @ 204 mls/hr 08/10/24 23:04 08/11/24 00:04 Chloride IV 08/10/24 23:33 204 mls/hr ONCE ONE Administration Sodium Chloride 1,000 mls @ 999 mls/hr 08/10/24 23:15 08/11/24 00:04 Ns IV 08/11/24 00:15 999 mls/hr .Q1H1M DOMINIK Administration Methylprednisolone Sodium Succinate 60 mg 08/10/24 21:12 08/10/24 21:23 Methylprednisolone Sod Succ 125 Mg/2 Ml Vial IVPUSH 08/10/24 21:13 60 mg ONCE ONE Administration Phenobarbital Sodium 240 mg 08/11/24 00:00 08/11/24 00:04 Phenobarbital Sodium 130 Mg/Ml Im Once IM 08/11/24 00:01 240 mg ONCE ONE Administration Protocol Medical Decision Making Medical Decision Making MDM Narrative: 73 yo male with PMH of HLD, HTN, ETOH use, COPD not on home O2 here with c/o difficulty breathing and wheezing after he fell walking home from the [employer] s/p 5 beers. He denies preceding illness. At this time will need basic labs, IV steroids, CT head/cspine and CXR. Suspect COPD triggered by walking and fall. He is to get more nebs here. He is altered to date unclear if this is ETOH or head injury. Differential Diagnosis Differential Diagnoses: The differential diagnosis associated with the presentation includes COPD, ETOH intoxication, viral syndrome, head injury Admission/Observation Consideration of admission/observation: Escalation of care including admission/observation considered given COPD and NA needs admission Consult Healthcare Provider Management of the patient was discussed with: Hospitalist (will admit) Lab Data MDM Lab Attestation statement: I reviewed the patient's lab results. 08/10/24 22:08 08/10/24 22:01 Labs: Lab Results 08/10/24 08/10/24 08/10/24 Range/Units 22:01 22:04 22:08 WBC 7.1 (4.8-10.8) X10*3/uL RBC 4.97 (4.60-5.80) X10*6/uL Hgb 17.1 (14.0-18.0) g/dl Hct 48.0 (42.0-52.0) % MCV 96.6 (80.0-98.0) fL MCH 34.4 H (27.0-33.0) pg MCHC 35.6 (31.0-36.0) g/dl RDW 12.6 (11.0-16.0) % Plt Count 337 (160-400) X10*3/uL MPV 8.9 L (9.4-12.4) fL Immature Gran % (Auto) 1.3 H (0.0-0.4) % Neut % (Auto) 71.4 (45-73) % Lymph % (Auto) 16.2 L (20-40) % Noble % (Auto) 9.8 (2-11) % Eos % (Auto) 0.7 (0-4) % Baso % (Auto) 0.6 (0-2) % Lymph # (Auto) 1.2 (1.2-4.9) X10*3/uL Noble # (Auto) 0.7 (0.1-1.2) X10*3/uL Eos # (Auto) 0.1 (0.0-0.4) X10*3/uL Baso # (Auto) 0.0 (0.0-0.2) X10*3/uL Abs Immat Gran (auto) 0.09 H (0.00-0.03) X10*3/uL Absolute Neuts (auto) 5.1 (2.0-8.3) x10*3/uL Absolute Nucleated RBC 0.000 (0.0-0.012) X10*3/uL Nucleated RBC % (auto) 0.0 (0.0-0.2) /100WBC VBG pH 7.32 (7.32-7.43) VBG pCO2 35 mmHg VBG pO2 58 mmHg VBG HCO3 18 L (22-26) mmol/L VBG O2 Saturation 84.0 % VBG Base Excess -6.5 mmol/L Sodium 126 L (135-145) mmol/L Potassium 4.4 (3.3-5.1) mmol/L Chloride 95 L (96-108) mmol/L Carbon Dioxide 18 L (22-29) mmol/L Anion Gap 17 (12-20) BUN 11 (9-16) mg/dL Creatinine 0.78 (0.5-1.4) mg/dL Estim Creat Clear Calc 107.6 Estimated GFR > 60 Random Glucose 108 (60-115) mg/dL Lactic Acid (0.5-2.0) mmol/L Calcium 9.2 D (8.4-10.2) mg/dL Magnesium 2.3 (1.6-2.6) mg/dL Total Bilirubin 0.3 (0.0-1.0) mg/dL Direct Bilirubin 0.2 (0.0-0.5) mg/dL AST 42 H (5-37) U/L ALT 47 H (0-40) U/L Alkaline Phosphatase 56 (39-117) U/L Total Creatine Kinase 165 (38-174) U/L Troponin I High Sens 20.9 (<3.5-35.0) ng/L B-Natriuretic Peptide 96 (<100) pg/mL Total Protein 7.3 (6.5-8.0) g/dL Albumin 4.0 (3.5-5.0) g/dL Lipase 22 (8-78) U/L Ethyl Alcohol 176 mg/dL Influenza Type A (PCR) NEGATIVE (Negative) Influenza Type B (PCR) NEGATIVE (Negative) RSV RNA Qual (PCR) NEGATIVE (Negative) SARS-CoV-2 RNA (RT-PCR) NEGATIVE (Negative) 08/10/24 Range/Units 22:40 WBC (4.8-10.8) X10*3/uL RBC (4.60-5.80) X10*6/uL Hgb (14.0-18.0) g/dl Hct (42.0-52.0) % MCV (80.0-98.0) fL MCH (27.0-33.0) pg MCHC (31.0-36.0) g/dl RDW (11.0-16.0) % Plt Count (160-400) X10*3/uL MPV (9.4-12.4) fL Immature Gran % (Auto) (0.0-0.4) % Neut % (Auto) (45-73) % Lymph % (Auto) (20-40) % Noble % (Auto) (2-11) % Eos % (Auto) (0-4) % Baso % (Auto) (0-2) % Lymph # (Auto) (1.2-4.9) X10*3/uL Noble # (Auto) (0.1-1.2) X10*3/uL Eos # (Auto) (0.0-0.4) X10*3/uL Baso # (Auto) (0.0-0.2) X10*3/uL Abs Immat Gran (auto) (0.00-0.03) X10*3/uL Absolute Neuts (auto) (2.0-8.3) x10*3/uL Absolute Nucleated RBC (0.0-0.012) X10*3/uL Nucleated RBC % (auto) (0.0-0.2) /100WBC VBG pH (7.32-7.43) VBG pCO2 mmHg VBG pO2 mmHg VBG HCO3 (22-26) mmol/L VBG O2 Saturation % VBG Base Excess mmol/L Sodium (135-145) mmol/L Potassium (3.3-5.1) mmol/L Chloride (96-108) mmol/L Carbon Dioxide (22-29) mmol/L Anion Gap (12-20) BUN (9-16) mg/dL Creatinine (0.5-1.4) mg/dL Estim Creat Clear Calc Estimated GFR Random Glucose (60-115) mg/dL Lactic Acid 3.2 H* (0.5-2.0) mmol/L Calcium (8.4-10.2) mg/dL Magnesium (1.6-2.6) mg/dL Total Bilirubin (0.0-1.0) mg/dL Direct Bilirubin (0.0-0.5) mg/dL AST (5-37) U/L ALT (0-40) U/L Alkaline Phosphatase (39-117) U/L Total Creatine Kinase (38-174) U/L Troponin I High Sens (<3.5-35.0) ng/L B-Natriuretic Peptide (<100) pg/mL Total Protein (6.5-8.0) g/dL Albumin (3.5-5.0) g/dL Lipase (8-78) U/L Ethyl Alcohol mg/dL Influenza Type A (PCR) (Negative) Influenza Type B (PCR) (Negative) RSV RNA Qual (PCR) (Negative) SARS-CoV-2 RNA (RT-PCR) (Negative) Independent Interpretation I performed an independent interpretation of an: EKG, Plain X-Ray and CT Scan (no ICH) Interpretation: Rate: 75 Rhythm: NSR Jesse: normal Normal P waves. Normal MELISSA. Normal QRS complex. ST T wave : normal no MORGAN qTC: 460 prior studies: no acute ischemia The study has been interpreted contemporaneously by me. . Radiology Impression Discussion of test interpretation with radiology: I have reviewed the radiologist's reading. Independent Historian Clinical information obtained from an independent historian. History obtained from or confirmed by: EMS External Record Review External record reviewed: Outpatient record Discharge Plan Discharge Clinical Impression: Acute exacerbation of chronic obstructive pulmonary disease, Acute hyponatremia Alcohol intoxication Qualifiers: Complication of substance-induced condition: with unspecified complication Q ualified Code(s): F10.929 - Alcohol use, unspecified with intoxication, unspecified Patient Disposition: Admitted As Inpatient Print Language: Kinyarwanda
[2024-08-10] MEDS: methylPREDNISolone Sod Succ 125 MG/2 ML VIAL 60 MG IVPUSH (21:23)
[2024-08-10 21:33] VITALS: PULSE 77; RESP 28; O2SAT 100
[2024-08-10] MEDS: Albuterol Sulfate 7.5 MG, Albuterol Sulfate (0.083%) 2.5 MG 10 MG INHALE (21:37)
[2024-08-10 21:49] VITALS: PULSE 76; PULSE 77; RESP 28; TEMP 36.1; O2SAT 96; O2SAT 98
[2024-08-10 22:09] LABS: VBG Base Excess -6.5 mmol/L; VBG HCO3 18 mmol/L (22-26); VBG pCO2 35 mmHg; VBG pH 7.32 (7.32-7.43); VBG pO2 58 mmHg
[2024-08-10 22:09] LABS: Venous Blood Gas Refer to POC result
[2024-08-10 22:12] LABS: MANUAL DIFF FLAG NO
[2024-08-10 22:13] LABS: Basophils Percent Auto 0.6 % (0-2); Eosinophils Absolute Auto 0.1 X10*3/uL (0.0-0.4); Eosinophils Percent Auto 0.7 % (0-4); Hemoglobin 17.1 g/dl (14.0-18.0); Imm Gran Abs Auto 0.09 X10*3/uL (0.00-0.03); Imm Gran Pct Auto 1.3 % (0.0-0.4); Lymphocytes Absolute Auto 1.2 X10*3/uL (1.2-4.9); Lymphocytes Percent Auto 16.2 % (20-40); Mean Corpuscular HGB Conc 35.6 g/dl (31.0-36.0); Mean Corpuscular Hemoglobin 34.4 pg (27.0-33.0); Mean Corpuscular Volume 96.6 fL (80.0-98.0); Mean Platelet Volume 8.9 fL (9.4-12.4); Monocytes Absolute Auto 0.7 X10*3/uL (0.1-1.2); Monocytes Percent Auto 9.8 % (2-11); Neutrophils Absolute Auto 5.1 x10*3/uL (2.0-8.3); Neutrophils Percent Auto 71.4 % (45-73); Platelet Count 337 X10*3/uL (160-400); Red Blood Count 4.97 X10*6/uL (4.60-5.80); Red Cell Distribution Width 12.6 % (11.0-16.0); White Blood Count 7.1 X10*3/uL (4.8-10.8)
[2024-08-10 22:19] LABS: Ethanol 176 mg/dL
[2024-08-10 22:23] LABS: Alanine Aminotransferase 47 U/L (0-40); Alkaline Phosphatase 56 U/L (39-117); Anion Gap 17 (12-20); Aspartate Amino Transferase 42 U/L (5-37); Bilirubin Direct 0.2 mg/dL (0.0-0.5); Bilirubin Total 0.3 mg/dL (0.0-1.0); Blood Urea Nitrogen 11 mg/dL (9-16); Calcium 9.2 mg/dL (8.4-10.2); Carbon Dioxide 18 mmol/L (22-29); Chloride 95 mmol/L (96-108); Creatinine Clr Calc Pharmacy 107.6; Estimated Glomerular Filt Rate > 60; Glucose Random 108 mg/dL (60-115); Lipase 22 U/L (8-78); Magnesium 2.3 mg/dL (1.6-2.6); Potassium 4.4 mmol/L (3.3-5.1); Sodium 126 mmol/L (135-145); Total Protein 7.3 g/dL (6.5-8.0)
[2024-08-10 22:28] LABS: Troponin-I High Sensitivity 20.9 ng/L (<3.5-35.0)
[2024-08-10 22:33] LABS: B Type Natriuretic Peptide 96 pg/mL (<100)
[2024-08-10 22:43] LABS: Influenza A PCR NEGATIVE (Negative); Influenza B PCR NEGATIVE (Negative); Resp Syncy Virus RNA Qual PCR NEGATIVE (Negative); SARS COV2 PCR INHOUSE NEGATIVE (Negative)
[2024-08-10] MEDS: cefTRIAXone sodium 1 GM VIAL IVPUSH (22:46)
[2024-08-10 22:51] VITALS: BP 125/70; PULSE 89; RESP 28; O2SAT 93
[2024-08-10 23:11] LABS: Lactic Acid 3.2 mmol/L (0.5-2.0)
[2024-08-11] VITALS (10 sets, daily range): BP systolic 129–181; BP diastolic 67–82; PULSE 78–115; RESP 16–28; TEMP 36.6–37.2; O2SAT 91–94; BMI 34.7
[2024-08-11] MEDS: Thiamine HCL 200 MG in 0.9 % Sodium Chloride 100 ML 204 MG IV (00:04)
[2024-08-11] MEDS: PHENobarbitaL sodium 130 MG/ML IM ONCE 240 MG IM (00:04)
[2024-08-11] MEDS: 0.9 % Sodium Chloride 1,000 ML 999 ML IV (00:04)
[2024-08-11 00:28] LABS: Appearance Urine Clear; Color Urine Yellow; Glucose Urine UA Negative (Negative); Leukocyte Esterase Urine Negative (Negative); Nitrite Urine Negative (Negative); Specific Gravity - Urine <= 1.005 (1.005-1.025); Urine Blood Negative (Negative); Urine Ketones Negative (Negative); Urine Protein Negative (Neg-Trace)
[2024-08-11 00:43] LABS: Sodium Urine Random < 20.0 mmol/L
[2024-08-11 00:44] LABS: Reflex Lactate? Lactic Acid Added
[2024-08-11 00:47] LABS: Amphetamine Screen Urine Not Detected (Not Detect); Barbiturates, Urine Not Detected (Not Detect); Benzodiazepines Screen Urine Not Detected (Not Detect); Buprenorphine Scr Not Detected (Not Detect); Cannabinoid Screen Urine Not Detected (Not Detect); Cocaine Screen Urine Not Detected (Not Detect); Fentanyl, urine Not Detected (Not Detect); Methadone Screen, Urine Not Detected (Not Detect); Opiate Screen Urine Not Detected (Not Detect); Oxycodone Screen Urine Not Detected (Not Detect); Phencyclidine Screen Urine Not Detected (Not Detect)
--- NOTE | 2024-08-11 00:50 | PM.IMHP ---
History of Present Illness Date of Service: 08/11/24 Chief Complaint: Fall This is a 73-year-old male with pertinent history of alcohol use disorder, COPD not on home oxygen, hypertension, mixed hyperlipidemia who presents to the emergency department for evaluation after a fall. Patient states he had 5 beers on the day of presentation and while he was walking home, he tripped and fell. He did hit his head. Denies jerking movements prior to the fall. No loss of consciousness. He remembers the details of the fall. No chest pain or palpitations prior to the fall. Also has been having dyspnea which is worse with exertion and wheezing. Admits associated cough with minimal sputum production. Patient is not taking his home prescription medications. States he is only using his home inhaler. No fever, chills, chest pain, palpitations, abdominal pain, changes in urinary or bowel habits. In the emergency department, patient requiring supplemental oxygen and given multiple breathing treatments. Imaging with lacunar infarct Review of Systems Constitutional: Constitutional: Reports no additional constitutional complaints Cardiovascular: Cardiovascular: Reports dyspnea on exertion Respiratory: Respiratory: Reports cough, Reports dyspnea on exertion and Reports wheezing Gastrointestinal: Gastrointestinal: Reports no additional gastrointestinal complaints Genitourinary: Genitourinary: Reports no additional male genitourinary complaints Allergic/Immunologic: Allergic/Immunologic: Reports wheezing [facility] Medical History COPD (chronic obstructive pulmonary disease) Personal history of nicotine dependence Pertinent family history: No family history of early CAD Social History Alcohol intake: current Alcohol intake frequency: 3 or more drinks per day Patient Tobacco Use Status: Former Tobacco user Tobacco use type: Cigarette Years Smoked: quit 8 years ago, started at 13 years old, 2ppd Smoked in Last 30 Days: No Use of substances other than those prescribed or required for medical reasons: No Advance Directives: No Advance Directives Information Provided: No Meds Allergies Allergy/AdvReac Type Severity Reaction Status Date / Time No Known Allergies Allergy Verified 08/10/24 21:21 Active Medications: Current Medications Albuterol/Ipratropium (Albuterol/Iprat 2.5/0.5mg 3 Ml Ampul.Neb) 3 ml INHALE RQ4H WHILE AWAKE [facility] Albuterol/Ipratropium (Albuterol/Iprat 2.5/0.5mg 3 Ml Ampul.Neb) 3 ml INHALE Q4H PRN PRN Reason: Wheezing Benzonatate (Benzonatate 100 Mg Capsule) 200 mg PO TID PRN PRN Reason: Cough Pharmacy Consult (Consult Rx Etoh Phenob Im/Po) 1 each MISCELLANE ONCE PRN; Protocol PRN Reason: Consult order Phenobarbital (Phenobarbital 30 Mg Tablet) 60 mg PO BID [facility]; Protocol Stop: 08/13/24 09:01 Phenobarbital (Phenobarbital 30 Mg Tablet) 30 mg PO BID [facility]; Protocol Stop: 08/15/24 09:01 Phenobarbital (Phenobarbital 30 Mg Tablet) 30 mg PO DAILY [facility]; Protocol Stop: 08/17/24 09:01 Phenobarbital Sodium (Phenobarbital Sodium 130 Mg/Ml Vial Im Q3hx2) 180 mg IM Q3H [facility]; Protocol Stop: 08/11/24 06:01 Prednisone (Prednisone 20 Mg Tablet) 40 mg PO DAILY [facility] Thiamine HCl (Thiamine Hcl 100 Mg Tablet) 100 mg PO DAILY [facility] Home Medications ?Medication ?Instructions ?Recorded ?Confirmed ?Last Taken ?Type budesonide 160 mcg-glycopyr 9 inh inhalation 03/16/24 Unknown History mcg-formot 4.8 mcg/actuation HFA inhaler (Breztri Aerosphere) cyanocobalamin (vitamin B-12) 3,000 mcg sublingual DAILY 03/16/24 Unknown History 3,000 mcg sublingual lozenge lisinopril 30 mg tablet 30 mg PO DAILY 03/16/24 Unknown History pravastatin 40 mg tablet 40 mg PO DAILY 03/16/24 Unknown History thiamine HCl (vitamin B1) 100 mg 100 mg PO DAILY 03/16/24 Unknown History tablet Physical Exam Vital Signs and Narrative: Vital Signs: Last Vital Signs Temp 97.8 F 08/11/24 00:00 Pulse 83 08/11/24 00:00 Resp 28 H 08/11/24 00:00 BP 129/69 08/11/24 00:00 Pulse Ox 92 08/11/24 00:00 O2 Del Method Nasal Cannula 08/11/24 00:00 O2 Flow Rate 1 08/11/24 00:00 Oxygen Flow Rate 2 08/10/24 21:09 BMI result Body Mass Index 35.7 Middle-aged male lying in bed in mild distress on supplemental oxygen Neck supple, no JVD Regular rate and rhythm, S1-S2 heard Bilateral wheezing present Abdomen soft nontender, no guarding, no rigidity Patient is awake, alert and oriented to self, place, time and person ; no focal motor deficit Psych: Normal mood No pedal edema Results Labs 08/11/24 03:18 08/11/24 03:18 Labs: Laboratory Results - last 24 hr 08/10/24 08/10/24 08/10/24 22:01 22:04 22:08 MCV 96.6 MCH 34.4 H MCHC 35.6 RDW 12.6 Plt Count 337 MPV 8.9 L Immature Gran % (Auto) 1.3 H Neut % (Auto) 71.4 Lymph % (Auto) 16.2 L [place] % (Auto) 9.8 Eos % (Auto) 0.7 Baso % (Auto) 0.6 Lymph # (Auto) 1.2 [place] # (Auto) 0.7 Eos # (Auto) 0.1 Baso # (Auto) 0.0 Abs Immat Gran (auto) 0.09 H Absolute Neuts (auto) 5.1 Absolute Nucleated RBC 0.000 Nucleated RBC % (auto) 0.0 VBG pH 7.32 VBG pCO2 35 VBG pO2 58 VBG HCO3 18 L VBG O2 Saturation 84.0 VBG Base Excess -6.5 Anion Gap 17 Estim Creat Clear Calc 107.6 Estimated GFR > 60 Random Glucose 108 Lactic Acid Calcium 9.2 D Magnesium 2.3 Total Bilirubin 0.3 Direct Bilirubin 0.2 AST 42 H ALT 47 H Alkaline Phosphatase 56 Total Creatine Kinase 165 Troponin I High Sens 20.9 B-Natriuretic Peptide 96 Total Protein 7.3 Albumin 4.0 Lipase 22 Urine Color Urine Appearance Urine pH Ur Specific [place] Urine Protein Urine Glucose (UA) Urine Ketones Urine Blood Urine Nitrite Ur Leukocyte Esterase Ur Random Sodium Urine Opiates Screen Ur Buprenorphine Scrn Ur Oxycodone Screen Urine Methadone Screen Urine Fentanyl Screen Ur Barbiturates Screen Ur Phencyclidine Scrn Ur Amphetamines Screen U Benzodiazepines Scrn Urine Cocaine Screen U Marijuana (THC) Screen Ethyl Alcohol 176 Influenza Type A (PCR) NEGATIVE Influenza Type B (PCR) NEGATIVE RSV RNA Qual (PCR) NEGATIVE SARS-CoV-2 RNA (RT-PCR) NEGATIVE 08/10/24 08/11/24 22:40 00:19 MCV MCH MCHC RDW Plt Count MPV Immature Gran % (Auto) Neut % (Auto) Lymph % (Auto) [place] % (Auto) Eos % (Auto) Baso % (Auto) Lymph # (Auto) [place] # (Auto) Eos # (Auto) Baso # (Auto) Abs Immat Gran (auto) Absolute Neuts (auto) Absolute Nucleated RBC Nucleated RBC % (auto) VBG pH VBG pCO2 VBG pO2 VBG HCO3 VBG O2 Saturation VBG Base Excess Anion Gap Estim Creat Clear Calc Estimated GFR Random Glucose Lactic Acid 3.2 H* Calcium Magnesium Total Bilirubin Direct Bilirubin AST ALT Alkaline Phosphatase Total Creatine Kinase Troponin I High Sens B-Natriuretic Peptide Total Protein Albumin Lipase Urine Color Yellow Urine Appearance Clear Urine pH 5.0 Ur Specific [place] <= 1.005 Urine Protein Negative Urine Glucose (UA) Negative Urine Ketones Negative Urine Blood Negative Urine Nitrite Negative Ur Leukocyte Esterase Negative Ur Random Sodium < 20.0 Urine Opiates Screen Not Detected Ur Buprenorphine Scrn Not Detected Ur Oxycodone Screen Not Detected Urine Methadone Screen Not Detected Urine Fentanyl Screen Not Detected Ur Barbiturates Screen Not Detected Ur Phencyclidine Scrn Not Detected Ur Amphetamines Screen Not Detected U Benzodiazepines Scrn Not Detected Urine Cocaine Screen Not Detected U Marijuana (THC) Screen Not Detected Ethyl Alcohol Influenza Type A (PCR) Influenza Type B (PCR) RSV RNA Qual (PCR) SARS-CoV-2 RNA (RT-PCR) Imaging Radiologist's Impressions: Impressions Chest X-Ray 08/10/24 21:15 IMPRESSION: No acute cardiopulmonary abnormalities. Electronically signed by: Bernabe Johnson MD 08/11/2024 12:25 AM EST RP Cervical Spine CT 08/10/24 22:12 IMPRESSION: 1. No evidence of acute intracranial hemorrhage or edematous territorial infarction. 2. Lacunar infarct of the left thalamus. Moderate underlying microangiopathy and generalized cerebral volume loss. 3. No evidence of acute fracture or traumatic subluxation of the cervical spine. Moderate multilevel degenerative spondyloarthropathy of the cervical spine. Electronically signed by: Sidney Chu DO 08/11/2024 12:18 AM EST RP Head CT 08/10/24 22:12 IMPRESSION: 1. No evidence of acute intracranial hemorrhage or edematous territorial infarction. 2. Lacunar infarct of the left thalamus. Moderate underlying microangiopathy and generalized cerebral volume loss. 3. No evidence of acute fracture or traumatic subluxation of the cervical spine. Moderate multilevel degenerative spondyloarthropathy of the cervical spine. Electronically signed by: Sidney Chu DO 08/11/2024 12:18 [place] [facility] [place] and Plan (1) Acute exacerbation of chronic obstructive pulmonary disease: Status: Acute (2) Alcohol intoxication: Qualifiers: Complication of substance-induced condition: with unspecified complication Qualified Code(s): F10.929 - Alcohol use, unspecified with intoxication, unspecified Status: Acute Plan This is a 73-year-old male with pertinent history of alcohol use disorder, COPD not on home oxygen, hypertension, mixed hyperlipidemia who presents to the emergency department for evaluation after a fall. #. Acute hypoxemic respiratory failure due to acute exacerbation of COPD: Will admit patient with supplemental oxygen. Scheduled and p.r.n. DuoNebs. Continue home inhaler. Initiating systemic steroids. Initiating azithromycin for pleiotropic effect #. Alcohol use disorder: Initiated on phenobarb protocol in the ER. Monitor CIWA and initiating thiamine. Consulted Addiction Team #. Hyponatremia, moderate: Improving with crystalloid resuscitation. #. Acute lactic acidosis due to hypoxia and albuterol use. No sepsis #. Lacunar infarct, chronic: Noted on imaging. Initiating aspirin and high-intensity statin #. Hypertension: No longer on antihypertensives. Monitor trends and initiate antihypertensive accordingly Med rec pending DVT prophylaxis: Lovenox Full code Admit as inpatient and will require two night minimum hospital stay for supplemental oxygen, monitoring of respiratory status, monitoring of electrolytes (as above), which is not possible in a lesser acute setting. Quality Stroke Does the patient have a stroke diagnosis?: Yes Reason for No Anti-thrombotic by Day Two: N/A - Med Ordered VTE Prior VTE?: No VTE Risk Level:: Medical - moderate - high VTE Device Contraindication: Treatment Not Indicated VTE Drug Contraindication: N/A - Med Ordered
[2024-08-11 01:16] LABS: Osmolality Urine 193 mosm/kg (373-1093); Osmolality, Serum 296 mosm/kg (281-305)
[2024-08-11 01:18] LABS: ~Lactic Acid-LAB USE ONLY 3.1 mmol/L (0.5-2.0)
[2024-08-11 02:52] LABS: Reflex Lactate? 2 Y
[2024-08-11] MEDS: Enoxaparin Sodium 40 MG/0.4 ML SYRINGE SUBCUT (03:03)
[2024-08-11] MEDS: PHENobarbitaL sodium 130 MG/ML VIAL IM Q3Hx2 180 MG IM ×2 (03:03→05:54)
[2024-08-11 03:24] LABS: Basophils Percent Auto 0.3 % (0-2); Eosinophils Percent Auto 0.1 % (0-4); Hematocrit 45.7 % (42.0-52.0); Hemoglobin 16.2 g/dl (14.0-18.0); Imm Gran Abs Auto 0.06 X10*3/uL (0.00-0.03); Imm Gran Pct Auto 0.7 % (0.0-0.4); Lymphocytes Absolute Auto 0.5 X10*3/uL (1.2-4.9); Lymphocytes Percent Auto 5.5 % (20-40); MANUAL DIFF FLAG SCAN; Mean Corpuscular HGB Conc 35.4 g/dl (31.0-36.0); Mean Corpuscular Hemoglobin 34.4 pg (27.0-33.0); Mean Platelet Volume 9.1 fL (9.4-12.4); Monocytes Absolute Auto 0.1 X10*3/uL (0.1-1.2); Monocytes Percent Auto 0.8 % (2-11); Neutrophils Absolute Auto 8.2 x10*3/uL (2.0-8.3); Neutrophils Percent Auto 92.6 % (45-73); Platelet Count 336 X10*3/uL (160-400); Red Blood Count 4.71 X10*6/uL (4.60-5.80); Red Cell Distribution Width 12.4 % (11.0-16.0); SCAN SMEAR FLAG 1; White Blood Count 8.9 X10*3/uL (4.8-10.8)
[2024-08-11 03:45] LABS: Anion Gap 18 (12-20); Blood Urea Nitrogen 9 mg/dL (9-16); Calcium 8.8 mg/dL (8.4-10.2); Carbon Dioxide 15 mmol/L (22-29); Chloride 100 mmol/L (96-108); Creatinine Clr Calc Pharmacy 101.1; Estimated Glomerular Filt Rate > 60; Glucose Random 158 mg/dL (60-115); Potassium 4.2 mmol/L (3.3-5.1); Sodium 129 mmol/L (135-145)
[2024-08-11 03:53] LABS: SLIDE REVIEW VERIFIED
[2024-08-11 03:58] LABS: ~Lactic Acid-LAB USE ONLY 3.7 mmol/L (0.5-2.0)
[2024-08-11] MEDS: Azithromycin 500 MG in 0.9 % Sodium Chloride 250 ML 125 MG IV (04:20)
[2024-08-11 08:02] LABS: Potassium Urine Random 26.8 mmol/L; Sodium Urine Random < 20.0 mmol/L
[2024-08-11] MEDS: predniSONE 20 MG TABLET 40 MG PO (08:45)
[2024-08-11] MEDS: Thiamine HCL 100 MG TABLET PO (08:45)
[2024-08-11] MEDS: 0.9 % Sodium Chloride Flush 3 ML SYRINGE IVFLUSH ×2 (08:46→17:13)
[2024-08-11] MEDS: Aspirin 81 MG TAB.CHEW PO (08:51)
[2024-08-11] MEDS: Albuterol/Iprat 2.5/0.5MG 3 ML AMPUL.NEB INHALE ×3 (09:05→19:49)
--- NOTE | 2024-08-11 09:08 | P.PNIM_ITS ---
Subjective Subjective Date of Service: 08/11/24 Interval History: feeling better Physical Exam 2 Vital Signs: Vital Signs: Last Vital Signs Temp 97.9 F 08/11/24 08:43 Pulse 108 H 08/11/24 08:43 Resp 16 08/11/24 08:43 BP 181/82 H 08/11/24 08:43 Pulse Ox 93 08/11/24 08:43 O2 Del Method Room Air 08/11/24 08:43 O2 Flow Rate 1 08/11/24 00:00 Oxygen Flow Rate 2 08/10/24 21:09 BMI result Body Mass Index 35.7 Appearance: Alert. Oriented X2 person and place. Mild acute distress. Eyes: Pupils equal, round and reactive to light. ENT: Pharynx normal. Neck: Normal inspection. Neck supple. CVS: Normal heart rate and rhythm. Pulses normal. Respiratory: Mild respiratory distress - tachypnea and short phrases. Breath sounds diminished throughout and exp wheezes Abdomen: Soft and nontender. : incontinent of stool Skin: Skin warm and dry. Normal skin color. Normal skin turgor. Extremities: No lower extremity edema. L elbow superficial abrasion he has normal and full ROM Neuro: Oriented X 2. No motor deficit. No sensory deficit. Objective Data Active Medications Acetaminophen (Acetaminophen 325 Mg Tablet) 650 mg PO Q6H PRN PRN Reason: Pain, Mild (Pain Scale 1-3), fever or headache Albuterol/Ipratropium (Albuterol/Iprat 2.5/0.5mg 3 Ml Ampul.Neb) 3 ml INHALE RQ4H WHILE AWAKE [facility] Last Admin: 08/11/24 09:05 Dose: 3 ml Documented By: RENETTA Albuterol/Ipratropium (Albuterol/Iprat 2.5/0.5mg 3 Ml Ampul.Neb) 3 ml INHALE Q4H PRN PRN Reason: Wheezing Aspirin (Aspirin 81 Mg Tab.Chew) 81 mg PO DAILY [facility] Last Admin: 08/11/24 08:51 Dose: 81 mg Documented By: KATHRYN Atorvastatin Calcium (Atorvastatin Calcium 40 Mg Tablet) 40 mg PO BEDTIME [facility] Benzonatate (Benzonatate 100 Mg Capsule) 200 mg PO TID PRN PRN Reason: Cough Calcium Carbonate (Calcium Carbonate 750 Mg Tab.Chew) 750 mg PO Q4H PRN PRN Reason: Heartburn Enoxaparin Sodium (Enoxaparin Sodium 40 Mg/0.4 Ml Syringe) 40 mg SUBCUT Q24H [facility] Last Admin: 08/11/24 03:03 Dose: 40 mg Documented By: OLAMIDE Azithromycin 500 mg/ Sodium (Chloride) 250 mls @ 125 mls/hr IV 0600 [facility] Last Infusion: 08/11/24 06:26 Dose: Infused Documented By: OLAMIDE Magnesium Hydroxide (Milk Of Magnesia 30 Ml Oral.Susp) 30 ml PO DAILY PRN PRN Reason: Constipation Melatonin (Melatonin 3 Mg Tablet) 6 mg PO BEDTIME PRN PRN Reason: Insomnia Ondansetron HCl (Ondansetron Hcl 4 Mg/2 Ml Vial) 4 mg IVPUSH Q8H PRN PRN Reason: Nausea and Vomiting Pharmacy Consult (Consult Rx Etoh Phenob Im/Po) 1 each MISCELLANE ONCE PRN; Protocol PRN Reason: Consult order Phenobarbital (Phenobarbital 30 Mg Tablet) 60 mg PO BID [facility]; Protocol Stop: 08/13/24 09:01 Phenobarbital (Phenobarbital 30 Mg Tablet) 30 mg PO BID [facility]; Protocol Stop: 08/15/24 09:01 Phenobarbital (Phenobarbital 30 Mg Tablet) 30 mg PO DAILY [facility]; Protocol Stop: 08/17/24 09:01 Prednisone (Prednisone 20 Mg Tablet) 40 mg PO DAILY [facility] Last Admin: 08/11/24 08:45 Dose: 40 mg Documented By: KATHRYN Sodium Chloride (0.9 % Sodium Chloride Flush 3 Ml Syringe) 3 ml IVFLUSH QSHIFT [facility] Last Admin: 08/11/24 08:46 Dose: 3 ml Documented By: KATHRYN Thiamine HCl (Thiamine Hcl 100 Mg Tablet) 100 mg PO DAILY [facility] Last Admin: 08/11/24 08:45 Dose: 100 mg Documented By: KATHRYN Labs 08/11/24 03:18 08/11/24 03:18 Labs: Laboratory Results - last 24 hr 08/10/24 08/10/24 08/10/24 22:01 22:04 22:08 MCV 96.6 MCH 34.4 H MCHC 35.6 RDW 12.6 Plt Count 337 MPV 8.9 L Immature Gran % (Auto) 1.3 H Neut % (Auto) 71.4 Lymph % (Auto) 16.2 L Wise % (Auto) 9.8 Eos % (Auto) 0.7 Baso % (Auto) 0.6 Lymph # (Auto) 1.2 Wise # (Auto) 0.7 Eos # (Auto) 0.1 Baso # (Auto) 0.0 Abs Immat Gran (auto) 0.09 H Absolute Neuts (auto) 5.1 Absolute Nucleated RBC 0.000 Nucleated RBC % (auto) 0.0 Smear Tech's Comments VBG pH 7.32 VBG pCO2 35 VBG pO2 58 VBG HCO3 18 L VBG O2 Saturation 84.0 VBG Base Excess -6.5 Anion Gap 17 Estim Creat Clear Calc 107.6 Estimated GFR > 60 Random Glucose 108 Osmolality Lactic Acid Lactic Acid F/U @ 2Hr Lactic Acid F/U @ 4Hr Calcium 9.2 D Magnesium 2.3 Total Bilirubin 0.3 Direct Bilirubin 0.2 AST 42 H ALT 47 H Alkaline Phosphatase 56 Total Creatine Kinase 165 Troponin I High Sens 20.9 B-Natriuretic Peptide 96 Total Protein 7.3 Albumin 4.0 Lipase 22 Urine Color Urine Appearance Urine pH Ur Specific [place] Urine Protein Urine Glucose (UA) Urine Ketones Urine Blood Urine Nitrite Ur Leukocyte Esterase Urine Osmolality Ur Random Sodium Ur Random Potassium Ur Random Chloride Urine Opiates Screen Ur Buprenorphine Scrn Ur Oxycodone Screen Urine Methadone Screen Urine Fentanyl Screen Ur Barbiturates Screen Ur Phencyclidine Scrn Ur Amphetamines Screen U Benzodiazepines Scrn Urine Cocaine Screen U Marijuana (THC) Screen Ethyl Alcohol 176 Influenza Type A (PCR) NEGATIVE Influenza Type B (PCR) NEGATIVE RSV RNA Qual (PCR) NEGATIVE SARS-CoV-2 RNA (RT-PCR) NEGATIVE 08/10/24 08/11/24 08/11/24 22:40 00:19 00:49 MCV MCH MCHC RDW Plt Count MPV Immature Gran % (Auto) Neut % (Auto) Lymph % (Auto) [place] % (Auto) Eos % (Auto) Baso % (Auto) Lymph # (Auto) Wise # (Auto) Eos # (Auto) Baso # (Auto) Abs Immat Gran (auto) Absolute Neuts (auto) Absolute Nucleated RBC Nucleated RBC % (auto) Smear Tech's Comments VBG pH VBG pCO2 VBG pO2 VBG HCO3 VBG O2 Saturation VBG Base Excess Anion Gap Estim Creat Clear Calc Estimated GFR Random Glucose Osmolality 296 Lactic Acid 3.2 H* Lactic Acid F/U @ 2Hr 3.1 H* Lactic Acid F/U @ 4Hr Calcium Magnesium Total Bilirubin Direct Bilirubin AST ALT Alkaline Phosphatase Total Creatine Kinase Troponin I High Sens B-Natriuretic Peptide Total Protein Albumin Lipase Urine Color Yellow Urine Appearance Clear Urine pH 5.0 Ur Specific [place] <= 1.005 Urine Protein Negative Urine Glucose (UA) Negative Urine Ketones Negative Urine Blood Negative Urine Nitrite Negative Ur Leukocyte Esterase Negative Urine Osmolality 193 L Ur Random Sodium < 20.0 Ur Random Potassium Ur Random Chloride Urine Opiates Screen Not Detected Ur Buprenorphine Scrn Not Detected Ur Oxycodone Screen Not Detected Urine Methadone Screen Not Detected Urine Fentanyl Screen Not Detected Ur Barbiturates Screen Not Detected Ur Phencyclidine Scrn Not Detected Ur Amphetamines Screen Not Detected U Benzodiazepines Scrn Not Detected Urine Cocaine Screen Not Detected U Marijuana (THC) Screen Not Detected Ethyl Alcohol Influenza Type A (PCR) Influenza Type B (PCR) RSV RNA Qual (PCR) SARS-CoV-2 RNA (RT-PCR) 08/11/24 08/11/24 08/11/24 03:18 03:19 07:46 MCV 97.0 MCH 34.4 H MCHC 35.4 RDW 12.4 Plt Count 336 MPV 9.1 L Immature Gran % (Auto) 0.7 H Neut % (Auto) 92.6 H Lymph % (Auto) 5.5 L [place] % (Auto) 0.8 L Eos % (Auto) 0.1 Baso % (Auto) 0.3 Lymph # (Auto) 0.5 L [place] # (Auto) 0.1 Eos # (Auto) 0.0 Baso # (Auto) 0.0 Abs Immat Gran (auto) 0.06 H Absolute Neuts (auto) 8.2 Absolute Nucleated RBC 0.000 Nucleated RBC % (auto) 0.0 Smear Tech's Comments VERIFIED VBG pH VBG pCO2 VBG pO2 VBG HCO3 VBG O2 Saturation VBG Base Excess Anion Gap 18 Estim Creat Clear Calc 101.1 Estimated GFR > 60 Random Glucose 158 H Osmolality Lactic Acid Lactic Acid F/U @ 2Hr Lactic Acid F/U @ 4Hr 3.7 H* Calcium 8.8 Magnesium Total Bilirubin Direct Bilirubin AST ALT Alkaline Phosphatase Total Creatine Kinase Troponin I High Sens B-Natriuretic Peptide Total Protein Albumin Lipase Urine Color Urine Appearance Urine pH Ur Specific [place] Urine Protein Urine Glucose (UA) Urine Ketones Urine Blood Urine Nitrite Ur Leukocyte Esterase Urine Osmolality Ur Random Sodium < 20.0 Ur Random Potassium 26.8 Ur Random Chloride 22.0 Urine Opiates Screen Ur Buprenorphine Scrn Ur Oxycodone Screen Urine Methadone Screen Urine Fentanyl Screen Ur Barbiturates Screen Ur Phencyclidine Scrn Ur Amphetamines Screen U Benzodiazepines Scrn Urine Cocaine Screen U Marijuana (THC) Screen Ethyl Alcohol Influenza Type A (PCR) Influenza Type B (PCR) RSV RNA Qual (PCR) SARS-CoV-2 RNA (RT-PCR) Assessment and Plan (1) Alcohol intoxication: Status: Acute Plan 73M PMH alcohol dependence, hypertension, COPD, hyperlipidemia presented with fall Acute hypoxic respiratory failure secondary to COPD with acute decompensation Continue steroids, bronchodilators, wean O2 as tolerated, azithromycin Alcohol dependence with withdrawal Continue phenobarbital protocol Hyponatremia Due to beer potomania Fluid restrict, monitor Non-anion gap metabolic acidosis Monitor, nephro eval Old lacunar infarct Aspirin, statin Hypertension uncontrolled Lisinopril DVT prophylaxis with Lovenox Full Code reason for continued hospitalization: Weaning O2, treating alcohol withdrawal Quality Stroke Does the patient have a stroke diagnosis?: Yes Reason for No Anti-thrombotic by Day Two: N/A - Med Ordered VTE Prior VTE?: No VTE Risk Level:: Medical - moderate - high VTE Device Contraindication: Treatment Not Indicated VTE Drug Contraindication: N/A - Med Ordered
--- NOTE | 2024-08-11 10:37 | PHA.MEDREC ---
Addendum entered by May Woodruff RPh 08/11/24 10:42: Patient also said he is not taking folic acid 1 mg. Original Note: Pharmacy Consult ? Medication Reconciliation Pharmacy has completed the medication reconciliation. Spoke to patient to confirm medication list. Patient confirmed he is using Breztri 2 puffs bid and Duoneb solution 1 vial bid. Last dose was a couple of days ago . Patient said he is not taking lisinopril, pravastatin, furosemide, Vitamin B-12 nor Vitamin B-1 because the copays are too high and his blood pressure is ok.
[2024-08-11] MEDS: PHENobarbitaL 30 MG TABLET 60 MG PO (17:11)
[2024-08-11] MEDS: Atorvastatin Calcium 40 MG TABLET PO (20:11)
[2024-08-12] MEDS: Enoxaparin Sodium 40 MG/0.4 ML SYRINGE SUBCUT (00:54)
[2024-08-12] MEDS: 0.9 % Sodium Chloride Flush 3 ML SYRINGE IVFLUSH ×3 (01:01→21:11)
[2024-08-12 03:46] VITALS: BP 124/62; PULSE 62; RESP 18; TEMP 36.7; O2SAT 94
[2024-08-12] MEDS: Azithromycin 500 MG in 0.9 % Sodium Chloride 250 ML 125 MG IV (06:09)
[2024-08-12 06:36] LABS: Hematocrit 43.7 % (42.0-52.0); Hemoglobin 15.3 g/dl (14.0-18.0); Mean Corpuscular Hemoglobin 34.4 pg (27.0-33.0); Mean Corpuscular Volume 98.2 fL (80.0-98.0); Mean Platelet Volume 9.4 fL (9.4-12.4); Platelet Count 350 X10*3/uL (160-400); Red Blood Count 4.45 X10*6/uL (4.60-5.80); Red Cell Distribution Width 12.8 % (11.0-16.0); White Blood Count 12.6 X10*3/uL (4.8-10.8)
[2024-08-12 06:57] LABS: Alanine Aminotransferase 44 U/L (0-40); Albumin Level 3.4 g/dL (3.5-5.0); Alkaline Phosphatase 50 U/L (39-117); Anion Gap 14 (12-20); Aspartate Amino Transferase 88 U/L (5-37); Bilirubin Direct 0.2 mg/dL (0.0-0.5); Bilirubin Total 0.5 mg/dL (0.0-1.0); Blood Urea Nitrogen 19 mg/dL (9-16); Calcium 9.1 mg/dL (8.4-10.2); Carbon Dioxide 22 mmol/L (22-29); Chloride 103 mmol/L (96-108); Creatinine Clr Calc Pharmacy 73.9; Estimated Glomerular Filt Rate > 60; Glucose Fasting 109 mg/dL (60-99); Magnesium 2.2 mg/dL (1.6-2.6); Potassium 4.1 mmol/L (3.3-5.1); Sodium 135 mmol/L (135-145)
[2024-08-12 07:28] VITALS: PULSE 84; RESP 18; O2SAT 93
[2024-08-12] MEDS: Albuterol/Iprat 2.5/0.5MG 3 ML AMPUL.NEB INHALE ×2 (07:28→20:40)
[2024-08-12 08:00] VITALS: BP 144/76; PULSE 86; RESP 18; TEMP 36.5; O2SAT 92
[2024-08-12] MEDS: Thiamine HCL 100 MG TABLET PO (08:41)
[2024-08-12] MEDS: Aspirin 81 MG TAB.CHEW PO (08:41)
[2024-08-12] MEDS: PHENobarbitaL 30 MG TABLET 60 MG PO ×2 (08:42→21:11)
[2024-08-12] MEDS: predniSONE 20 MG TABLET 40 MG PO (08:42)
--- NOTE | 2024-08-12 08:46 | HO.PM.IMPN ---
Subjective Subjective Date of Service: 08/12/24 Interval History: feeling better Physical Exam Vital Signs: Vital Signs: Last Vital Signs Temp 97.7 F 08/12/24 08:00 Pulse 86 08/12/24 08:00 Resp 18 08/12/24 08:00 BP 144/76 H 08/12/24 08:00 Pulse Ox 92 08/12/24 08:00 O2 Del Method Room Air 08/12/24 08:00 O2 Flow Rate 1 08/11/24 00:00 Oxygen Flow Rate 2 08/10/24 21:09 BMI result Body Mass Index 34.7 General: AO X 3, no acute distress Resp: CTA bilateral, no accessory muscles used CVS: S1,S2,RRR GI: soft, non tender, non distended Neuro: motor grossly intact, alert Psych: appropriate affect, appropriate insight Objective Data Active Medications Acetaminophen (Acetaminophen 325 Mg Tablet) 650 mg PO Q6H PRN PRN Reason: Pain, Mild (Pain Scale 1-3), fever or headache Albuterol/Ipratropium (Albuterol/Iprat 2.5/0.5mg 3 Ml Ampul.Neb) 3 ml INHALE Q4H PRN PRN Reason: Wheezing Albuterol/Ipratropium (Albuterol/Iprat 2.5/0.5mg 3 Ml Ampul.Neb) 3 ml INHALE RBID ON LICENSE OF [facility] Last Admin: 08/12/24 07:28 Dose: 3 ml Documented By: RENETTA Aspirin (Aspirin 81 Mg Tab.Chew) 81 mg PO DAILY ON LICENSE OF [facility] Last Admin: 08/11/24 08:51 Dose: 81 mg Documented By: KATHRYN Atorvastatin Calcium (Atorvastatin Calcium 40 Mg Tablet) 40 mg PO BEDTIME ON LICENSE OF [facility] Last Admin: 08/11/24 20:11 Dose: 40 mg Documented By: ALPHONSO Benzonatate (Benzonatate 100 Mg Capsule) 200 mg PO TID PRN PRN Reason: Cough Calcium Carbonate (Calcium Carbonate 750 Mg Tab.Chew) 750 mg PO Q4H PRN PRN Reason: Heartburn Enoxaparin Sodium (Enoxaparin Sodium 40 Mg/0.4 Ml Syringe) 40 mg SUBCUT Q24H ON LICENSE OF [facility] Last Admin: 08/12/24 00:54 Dose: 40 mg Documented By: ALPHONSO Azithromycin 500 mg/ Sodium (Chloride) 250 mls @ 125 mls/hr IV 0600 ON LICENSE OF [facility] Last Admin: 08/12/24 06:09 Dose: 125 mls/hr Documented By: ALPHONSO Lisinopril (Lisinopril 10 Mg Tablet) 30 mg PO DAILY ON LICENSE OF [facility]; Protocol Last Admin: 08/11/24 11:47 Dose: Not Given Documented By: MYRIAM Non-Admin Reason: Patient Refused Magnesium Hydroxide (Milk Of Magnesia 30 Ml Oral.Susp) 30 ml PO DAILY PRN PRN Reason: Constipation Melatonin (Melatonin 3 Mg Tablet) 6 mg PO BEDTIME PRN PRN Reason: Insomnia Ondansetron HCl (Ondansetron Hcl 4 Mg/2 Ml Vial) 4 mg IVPUSH Q8H PRN PRN Reason: Nausea and Vomiting Pharmacy Consult (Consult Rx Etoh Phenob Im/Po) 1 each MISCELLANE ONCE PRN; Protocol PRN Reason: Consult order Phenobarbital (Phenobarbital 30 Mg Tablet) 60 mg PO BID ON LICENSE OF [facility]; Protocol Stop: 08/13/24 09:01 Last Admin: 08/11/24 17:11 Dose: 60 mg Documented By: MYRIAM Phenobarbital (Phenobarbital 30 Mg Tablet) 30 mg PO BID ON LICENSE OF [facility]; Protocol Stop: 08/15/24 09:01 Phenobarbital (Phenobarbital 30 Mg Tablet) 30 mg PO DAILY ON LICENSE OF [facility]; Protocol Stop: 08/17/24 09:01 Prednisone (Prednisone 20 Mg Tablet) 40 mg PO DAILY ON LICENSE OF [facility] Last Admin: 08/11/24 08:45 Dose: 40 mg Documented By: KATHRYN Sodium Chloride (0.9 % Sodium Chloride Flush 3 Ml Syringe) 3 ml IVFLUSH QSHIFT ON LICENSE OF [facility] Last Admin: 08/12/24 01:01 Dose: 3 ml Documented By: ALPHONSO Thiamine HCl (Thiamine Hcl 100 Mg Tablet) 100 mg PO DAILY ON LICENSE OF [facility] Last Admin: 08/11/24 08:45 Dose: 100 mg Documented By: KATHRYN Labs 08/12/24 06:14 08/12/24 06:10 Labs: Laboratory Results - last 24 hr 08/12/24 08/12/24 06:10 06:14 MCV 98.2 H MCH 34.4 H MCHC 35.0 RDW 12.8 Plt Count 350 MPV 9.4 Absolute Nucleated RBC 0.000 Nucleated RBC % (auto) 0.0 Anion Gap 14 Estim Creat Clear Calc 73.9 Estimated GFR > 60 Fasting Glucose 109 H Calcium 9.1 Magnesium 2.2 Total Bilirubin 0.5 Direct Bilirubin 0.2 AST 88 H ALT 44 H Alkaline Phosphatase 50 Total Protein 6.0 L Albumin 3.4 L Microbiology Microbiology Results: Microbiology 08/10/24 22:40 Blood Culture - Preliminary Blood - Venous No growth after 24 hours. 08/10/24 22:40 Blood Culture - Preliminary Blood - Venous No growth after 24 hours. Assessment and Plan (1) Alcohol intoxication: Status: Acute Plan 73M PMH alcohol dependence, hypertension, COPD, hyperlipidemia presented with fall Acute hypoxic respiratory failure secondary to COPD with acute decompensation Continue steroids, bronchodilators, wean o2, azithromycin Alcohol dependence with withdrawal Continue phenobarbital protocol Hyponatremia Due to beer potomania resolved Non-anion gap metabolic acidosis resolved Old lacunar infarct Aspirin, statin Hypertension uncontrolled Lisinopril - patient refusing DVT prophylaxis with Lovenox Full Code reason for continued hospitalization: Weaning O2, treating alcohol withdrawal Quality Stroke Does the patient have a stroke diagnosis?: Yes Reason for No Anti-thrombotic by Day Two: N/A - Med Ordered VTE Prior VTE?: No VTE Risk Level:: Medical - moderate - high VTE Device Contraindication: Treatment Not Indicated VTE Drug Contraindication: N/A - Med Ordered
[2024-08-12 15:41] VITALS: BP 142/86; PULSE 72; RESP 20; TEMP 36.6; O2SAT 94
--- NOTE | 2024-08-12 15:54 | MHC.CM.PN ---
PT REPORTS HE LIVES ALONE AND IS INDEPENDENT WITH CARE HE HAS A NEBULIZER FOR DME AND NO HOME SERVICES COPY OF HCP REQUESTED PCP: PALMIRA BASILIO IMM DELIVERED PT STATES HE IS NOT INTERESTED IN STR OR VNA DCP: HOME NO SERVICES FRIEND TO TRANSPORT
[2024-08-12 19:31] VITALS: BP 147/82; PULSE 68; RESP 18; TEMP 36.5; O2SAT 97
[2024-08-12 20:40] VITALS: PULSE 85; RESP 18; O2SAT 95
[2024-08-12] MEDS: Atorvastatin Calcium 40 MG TABLET PO (21:10)
[2024-08-13] MEDS: Enoxaparin Sodium 40 MG/0.4 ML SYRINGE SUBCUT (00:12)
[2024-08-13 03:21] VITALS: BP 126/60; PULSE 63; RESP 20; TEMP 36.1; O2SAT 93
[2024-08-13] MEDS: Azithromycin 500 MG in 0.9 % Sodium Chloride 250 ML 125 MG IV (05:07)
[2024-08-13 07:40] VITALS: BP 147/60; PULSE 73; RESP 16; TEMP 36.8; O2SAT 93
[2024-08-13 07:59] VITALS: PULSE 80; RESP 18; O2SAT 95
[2024-08-13] MEDS: Albuterol/Iprat 2.5/0.5MG 3 ML AMPUL.NEB INHALE (07:59)
[2024-08-13] MEDS: lisinopriL 10 MG TABLET 30 MG PO (08:52)
[2024-08-13] MEDS: Thiamine HCL 100 MG TABLET PO (08:53)
[2024-08-13] MEDS: Aspirin 81 MG TAB.CHEW PO (08:53)
[2024-08-13] MEDS: predniSONE 20 MG TABLET 40 MG PO (08:53)
[2024-08-13] MEDS: PHENobarbitaL 30 MG TABLET 60 MG PO (08:53)
[2024-08-13] MEDS: 0.9 % Sodium Chloride Flush 3 ML SYRINGE IVFLUSH (08:53)
--- NOTE | 2024-08-13 09:07 | PM.DS ---
DS: Providers Provider Date of Service: 08/13/24 Date of admission: 08/11/24 00:49 Date of discharge: 08/13/24 Primary care physician: Ankita Crum MD Consults: 08/10/24 23:13 Addiction Medicine Routine Consulting Provider: Addiction Covering Reason for consultation: alcohol use disorder 08/12/24 10:13 Consult to Wound Care Routine Reason for consultation: left elbow abrasion DS: Diagnosis Discharge Diagnosis (1) Alcohol intoxication: Status: Acute DS: Summary Hospital Course Hospital Course: from initial hpi: 73-year-old male with pertinent history of alcohol use disorder, COPD not on home oxygen, hypertension, mixed hyperlipidemia who presents to the emergency department for evaluation after a fall. Patient states he had 5 beers on the day of presentation and while he was walking home, he tripped and fell. He did hit his head. Denies jerking movements prior to the fall. No loss of consciousness. He remembers the details of the fall. No chest pain or palpitations prior to the fall. Also has been having dyspnea which is worse with exertion and wheezing. Admits associated cough with minimal sputum production. Patient is not taking his home prescription medications. States he is only using his home inhaler. No fever, chills, chest pain, palpitations, abdominal pain, changes in urinary or bowel habits. In the emergency department, patient requiring supplemental oxygen and given multiple breathing treatments. Imaging with lacunar infarct hospital course: Patient was admitted for acute hypoxic respiratory failure secondary to COPD with acute decompensation. Was treated with steroids, bronchodilators, azithromycin. Patient was able to be weaned off oxygen is feeling much better will be discharged on 5 more days of prednisone. For alcohol dependence with withdrawal was treated with phenobarbital protocol and withdrawal symptoms have resolved. He received counseling and will follow up outpatient. For hyponatremia due to beer potomania he was put on fluid restriction and given oral solute and sodium improved to normal at an appropriate rate. Course complicated by non-anion gap metabolic acidosis which resolved. Patient incidentally found to have old lacunar infarct on imaging and will be started on aspirin and statin. For hypertension patient was prescribed antihypertensives however he has refused. Patient is feeling better will be discharged home. Time Attestation Discharge Coordination Time (in mins): 35 Quality: Safe Use of Opioids Does Pt have an Active Cancer Diagnosis on the Problem List?: No Quality: Stroke Does the patient have a stroke diagnosis?: No Physical Exam Vital Signs: Vital Signs: Last Vital Signs Temp 98.3 F 08/13/24 07:40 Pulse 80 08/13/24 07:59 Resp 18 08/13/24 07:59 BP 147/60 H 08/13/24 07:40 Pulse Ox 93 08/13/24 07:40 O2 Del Method Room Air 08/13/24 07:40 O2 Flow Rate 1 08/11/24 00:00 Oxygen Flow Rate 2 08/10/24 21:09 BMI result Body Mass Index 34.7 General: AO X 3, no acute distress Resp: CTA bilateral, no accessory muscles used CVS: S1,S2,RRR GI: soft, non tender, non distended Neuro: motor grossly intact, alert Psych: appropriate affect, appropriate insight DS: Data Data Completed and Pending Labs on day of discharge: Preliminary micro results at discharge 08/10/24 22:40 Blood Culture - Preliminary Blood - Venous No growth after 48 hours. 08/10/24 22:40 Blood Culture - Preliminary Blood - Venous No growth after 48 hours. Discharge Plan Discharge Anticipated Discharge Date/Time: 08/13/24 09:06 Patient Disposition: Home, Self-Care Discharge Diagnosis: etoh wihthdrawal, hyponatremia Referrals: Ankita Crum MD [Primary Care Provider] - 1 Week Discharge Medications: New atorvastatin 40 mg Tablet 40 mg PO BEDTIME Qty: 90 0RF aspirin 81 mg Tablet,Chewable 81 mg PO DAILY Qty: 90 0RF prednisone 20 mg Tablet 40 mg PO DAILY Qty: 10 0RF Continued Breztri Aerosphere 160-9-4.8 mcg/actuation HFA aerosol inhaler 2 inh inhalation BID ipratropium-albuterol 0.5 mg-3 mg(2.5 mg base)/3 mL solution for nebulization 3 ml inhalation BID Qty: 180 6RF Diet: Advance to usual diet Activity on Discharge: As tolerated Stand Alone Forms: Patient Portal Discharge page Print Language: Mozambican Care Plan Goals: Recovery Health Concerns: Alcohol dependence Plan of Treatment: Avoid alcohol, follow up with resources in community Assessment: See above
--- NOTE | 2024-08-13 09:18 | PM.EVENT ---
Event Note Date of Service: 08/13/24 Event Note: Addiction consult placed for patient medically admitted with alcohol withartricia Screened + on AUDIT screen--declined intervention/consult from [facility] provider aware Time Spent With Patient Time: Total time managing care of this patient today ____ minutes.
--- NOTE | 2024-08-13 11:42 | MHC.CM.PN ---
DP: PT HAS BEEN MEDICALLY CLEARED FOR DC HOME, NO SERVICES. PT HAS OWN RIDE HOME
--- NOTE | 2024-08-13 13:18 | HO.WOUND ---
Wound Consult: Initial 73yr old?male admitted to [facility] on 08/11/24 - See progress notes and H&P for detailed history.? Wound consult placed for Left Elbow abrasion.? Patient agreeable to assessment and photo documentation.? Patient reports he fell on the sidewalk. He denies tenderness or pain. There is a stable intact dry scab noted with ecchymosis noted to the surrounding tissue with some mild swelling. The patient requests no dressing to the area. He reports he is set for d/c to home and will not cover it at home. Patient educated on s/s of infection to reports, he reports understanding. At this time there is no s/s of infection, the scab is stable and intact. Recommend dry dressing but pt refused.
== END 2024-08-13 13:24 | disposition home or self-care (01) | DRG 190 ==
LOC: HO.ED 23:09 → HO.EDOVER 08-11 00:57 → HO.S3 08-11 08:49
PROVIDERS: Admitting Provider Student in an Organized Health Care Education/Training Program; Emergency Provider Emergency Medicine; PCP Internal Medicine; Visit Provider Internal Medicine
DX: J44.1 Chronic obstructive pulmonary disease with (acute) exacerbation (principal); J96.01 Acute respiratory failure with hypoxia; E87.21 Acute metabolic acidosis; E87.1 Hypo-osmolality and hyponatremia; F10.239 Alcohol dependence with withdrawal, unspecified; F10.229 Alcohol dependence with intoxication, unspecified; Y90.6 Blood alcohol level of 120-199 mg/100 ml; I10 Essential (primary) hypertension; E78.2 Mixed hyperlipidemia; Z20.822 Contact with and (suspected) exposure to COVID-19; Z86.73 Personal history of transient ischemic attack (TIA), and cerebral infarction without residual deficits; Z87.891 Personal history of nicotine dependence; Z79.899 Other long term (current) drug therapy
CPT/HCPCS: 0241U; 36415; 70450; 71045; 72125; 80048; 80076; 80307; 81003; 82436; 82550; 82803; 83605; 83690; 83735; 83880; 83930; 83935; 84133; 84300; 84484; 85025; 85027; 87040; 93005; 94640; 97161; 99285; J0456; J0696; J1650; J2560; J2919; J3411

== ENCOUNTER → 2024-08-10 21:12 | Outpatient (BNV) | payer MEDICARE, SELFPAY | PROVIDERS: Admitting Provider Student in an Organized Health Care Education/Training Program; Emergency Provider Emergency Medicine; Visit Provider Internal Medicine Cardiovascular Disease | DX: R06.00 Dyspnea, unspecified (principal) | CPT/HCPCS: 93010 ==

== ENCOUNTER → 2024-08-11 00:49 | Outpatient (BNV) | payer MEDICARE, SELFPAY | PROVIDERS: Admitting Provider Student in an Organized Health Care Education/Training Program; Emergency Provider Emergency Medicine; Visit Provider Student in an Organized Health Care Education/Training Program | DX: J44.1 Chronic obstructive pulmonary disease with (acute) exacerbation (principal); F10.929 Alcohol use, unspecified with intoxication, unspecified; E87.1 Hypo-osmolality and hyponatremia | CPT/HCPCS: 99223; 99232; 99239; 99499 ==

== ENCOUNTER 2024-09-17 11:47 | Outpatient (REF) | payer MEDICARE, SELFPAY ==
[2024-09-17 11:57] LABS: MANUAL DIFF FLAG NO
[2024-09-17 12:07] LABS: Basophils Percent Auto 0.6 % (0-2); Eosinophils Absolute Auto 0.1 X10*3/uL (0.0-0.4); Eosinophils Percent Auto 0.9 % (0-4); Hematocrit 48.7 % (42.0-52.0); Hemoglobin 16.5 g/dl (14.0-18.0); Imm Gran Abs Auto 0.04 X10*3/uL (0.00-0.03); Imm Gran Pct Auto 0.6 % (0.0-0.4); Lymphocytes Absolute Auto 0.9 X10*3/uL (1.2-4.9); Lymphocytes Percent Auto 13.2 % (20-40); Mean Corpuscular HGB Conc 33.9 g/dl (31.0-36.0); Mean Corpuscular Hemoglobin 33.9 pg (27.0-33.0); Mean Platelet Volume 9.7 fL (9.4-12.4); Neutrophils Absolute Auto 4.8 x10*3/uL (2.0-8.3); Neutrophils Percent Auto 69.7 % (45-73); Platelet Count 337 X10*3/uL (160-400); Red Blood Count 4.87 X10*6/uL (4.60-5.80); Red Cell Distribution Width 13.3 % (11.0-16.0); White Blood Count 6.9 X10*3/uL (4.8-10.8)
[2024-09-17 12:35] LABS: Albumin Level 4.1 g/dL (3.5-5.0); Alkaline Phosphatase 55 U/L (39-117); Anion Gap 11 (12-20); Aspartate Amino Transferase 37 U/L (5-37); Bilirubin Total 0.6 mg/dL (0.0-1.0); Blood Urea Nitrogen 13 mg/dL (9-16); Calcium 9.6 mg/dL (8.4-10.2); Carbon Dioxide 30 mmol/L (22-29); Chloride 102 mmol/L (96-108); Cholesterol 178 mg/dL (<200); Estimated Glomerular Filt Rate > 60; Glucose Random 127 mg/dL (60-115); HDL Cholesterol 70 mg/dL (>40); LDL Cholesterol Calculated 91 mg/dL (<100); Potassium 4.1 mmol/L (3.3-5.1); Sodium 139 mmol/L (135-145); Total Protein 7.4 g/dL (6.5-8.0); Triglycerides 85 mg/dL (<150)
[2024-09-17 12:53] LABS: Alanine Aminotransferase 44 U/L (0-40)
[2024-09-17 13:02] LABS: Folate 7.5 ng/mL (> or = 4.0); Prostate Specific Antigen Scr 1.03 ng/mL (<0.05-4.0); Vitamin B12 171 pg/mL (200-900)
== END 2024-09-17 11:48 | disposition home or self-care (01) ==
LOC: HO.LAB 11:47
PROVIDERS: PCP Internal Medicine; Visit Provider Internal Medicine
DX: I10 Essential (primary) hypertension (principal); J44.9 Chronic obstructive pulmonary disease, unspecified; K76.0 Fatty (change of) liver, not elsewhere classified; R60.0 Localized edema; Z12.5 Encounter for screening for malignant neoplasm of prostate
CPT/HCPCS: 36415; 80053; 80061; 82607; 82746; 84153; 85025

== ENCOUNTER 2024-12-12 11:17 | Outpatient (AMB) | payer MEDICARE, SELFPAY ==
--- NOTE | 2024-12-12 11:19 | A.OFFVIS_ITS ---
Vital Signs 12/12/24 11:22 Height 5 ft 11 in Weight 255 lb 11.779 oz BMI 35.7 BP 148/82 H Blood Pressure Location Rt brachial Position Sitting Pulse 94 Pulse Source Doppler Pulse Oximetry (%) 94 Oxygen Delivery Method Room Air Intake Visit Reasons: COPD Allergies No Known Allergies Allergy (Verified 12/12/24 11:24) HPI HPI COPD: Details: 73-year-old gentleman, former 50+ pack-year smoker, quit 2018 with underlying COPD now well controlled on Breztri, duo nebs, and albuterol MDI. Patient denies any recent exacerbations. [facility] Medical History (Updated 12/12/24 @ 11:31 by Rush Reece MD) Personal history of nicotine dependence COPD (chronic obstructive pulmonary disease) Social History Household Members: None Housing: House Do you presently have visiting nurse or other home services: No Alcohol intake: current Alcohol intake frequency: 3 or more drinks per day Patient Tobacco Use Status: Former Tobacco user Tobacco use type: Cigarette Years Smoked: quit 8 years ago, started at 13 years old, 2ppd Substance Use Type: Marijuana service: No Review of Systems Const Denies daytime sleepiness, Denies excessive sweating, Denies fatigue, Denies fever(s), Denies lethargy, Denies malaise, Denies night sweats, Denies snoring and Denies weight loss Eyes Denies blurry vision and Denies itchy eyes ENT Denies nasal congestion, Denies post nasal drip, Denies sinus pain, Denies sinus pressure and Denies other ( Thrush) Card Denies chest pain, Denies pedal edema, Denies dyspnea, Denies orthopnea and Denies paroxysmal nocturnal dyspnea Resp Denies cough, Denies hemoptysis, Denies excessive phlegm production, Denies dyspnea, Denies snoring and Denies wheezing GI Denies abdominal pain and Denies heartburn Musc Denies myalgias, Denies arthralgias and Denies joint swelling Skin/Breast Denies rash Neuro Denies memory loss and Denies seizure-like activity Psych Denies abnormal sleep pattern, Denies anxiety and Denies memory loss Endo Denies excessive sweating, Denies fatigue and Denies heat intolerance Aashish/Lymph Denies easy bruising Aller/Immun Denies itchy eyes, Denies seasonal rhinorrhea and Denies wheezing Physical Exam Vital Signs: Last Vital Signs Pulse 94 12/12/24 11:22 BP 148/82 H 12/12/24 11:22 Pulse Ox 94 12/12/24 11:22 Oxygen Delivery Method Room Air 12/12/24 11:22 BMI result Body Mass Index 35.7 Const General: no acute distress and alert Nutritional Appearance: not obese Orientation/consciousness: Other orientation findings ( oriented) HEENT Head: Yes atraumatic Eyes General: appearance normal, both eyes and all related structures Sclerae: sclerae normal EOM: EOMs intact bilaterally Neck Neck: Yes supple Lymphatic: no lymphadenopathy noted Resp Effort & Inspection: normal respiratory effort and no use of accessory muscles Auscultation: clear to auscultation bilaterally Cardio Rate: regular rate Rhythm: regular rhythm Heart sounds: no gallops, no murmurs and no rubs Skin General skin exam: other ( warm) Extrem General: No clubbing, No cyanosis and No edema Assessment & Plan Assessment & Plan (1) Personal history of nicotine dependence: Code(s): Z87.891 - Personal history of nicotine dependence Category: Medical Plan: Results of lung cancer screening CT chest from 05/12 reviewed, no worrisome nodules. Will repeat in April of 2025. (2) COPD (chronic obstructive pulmonary disease): Code(s): J44.9 - Chronic obstructive pulmonary disease, unspecified Category: Medical Plan: Well controlled current regimen of Breztri, duo nebs, and albuterol MDI. Continue current regimen. Coding Level of Care Code Est Pt Level 4 (93005) Diagnoses Personal history of nicotine dependence Z87.891 COPD (chronic obstructive pulmonary disease) J44.9
[2024-12-12 11:22] VITALS: BP 148/82; PULSE 94; O2SAT 94; BMI 35.7
== END 2024-12-12 11:31 | disposition home or self-care (01) ==
LOC: HO.HPS 11:17
PROVIDERS: PCP Internal Medicine; Visit Provider Internal Medicine Pulmonary Disease
DX: Z87.891 Personal history of nicotine dependence (principal); J44.9 Chronic obstructive pulmonary disease, unspecified
CPT/HCPCS: 99214

== ENCOUNTER → 2024-12-12 11:17 | Outpatient (BNVA) | payer MEDICARE, SELFPAY | PROVIDERS: PCP Internal Medicine; Visit Provider Internal Medicine Pulmonary Disease | DX: J44.9 Chronic obstructive pulmonary disease, unspecified (principal); Z87.891 Personal history of nicotine dependence | CPT/HCPCS: 99212 ==

== ENCOUNTER 2025-01-07 11:08 | Outpatient (REF) | payer MEDICARE, SELFPAY ==
[2025-01-07 12:09] LABS: Estimated Average Glucose 131 mg/dL; Hemoglobin A1C 196.7991 umol/L; Hemoglobin A1c % 6.2 % (<6.0); Total Hemoglobin (HGBA1C) 4430.7241 umol/L
[2025-01-07 12:26] LABS: Alanine Aminotransferase 33 U/L (0-40); Albumin Level 4.2 g/dL (3.5-5.0); Alkaline Phosphatase 47 U/L (39-117); Anion Gap 15 (12-20); Aspartate Amino Transferase 31 U/L (5-37); Bilirubin Total 0.6 mg/dL (0.0-1.0); Blood Urea Nitrogen 11 mg/dL (9-16); Calcium 9.8 mg/dL (8.4-10.2); Carbon Dioxide 29 mmol/L (22-29); Chloride 102 mmol/L (96-108); Estimated Glomerular Filt Rate > 60; Glucose Random 150 mg/dL (60-115); Potassium 4.1 mmol/L (3.3-5.1); Sodium 142 mmol/L (135-145); Total Protein 7.6 g/dL (6.5-8.0)
[2025-01-07 12:45] LABS: Vitamin B12 901 pg/mL (200-900)
== END 2025-01-07 11:09 | disposition home or self-care (01) ==
LOC: HO.LAB 11:08
PROVIDERS: PCP Internal Medicine; Visit Provider Internal Medicine
DX: D51.9 Vitamin B12 deficiency anemia, unspecified (principal); J44.9 Chronic obstructive pulmonary disease, unspecified; K76.0 Fatty (change of) liver, not elsewhere classified; R09.02 Hypoxemia; R60.0 Localized edema; Z13.1 Encounter for screening for diabetes mellitus
CPT/HCPCS: 36415; 80053; 82607; 83036

== ENCOUNTER 2025-05-15 10:17 | Outpatient (REF) | payer MEDICARE, SELFPAY ==
--- NOTE | ~2025-05-15 | CT_ITS ---
EXAMINATION: CT LUNG SCREENING HISTORY: Z87.891 - Personal history of nicotine dependence TECHNIQUE: Low dose axial images were obtained from the sternal notch to upper abdomen without IV contrast per standard departmental protocol. Sagittal and coronal reformatted images were also obtained and reviewed. One or more of the following techniques was used for dose reduction: Automated exposure control, adjustment of the mA and/or kV according to patient size, use of iterative reconstruction technique. DLP: 72 mGy-cm COMPARISON: Comparison is made with the prior examination dated 05/08/2024. FINDINGS: Lung nodules: Again seen are scattered tiny calcified granulomas in both lungs. There is a 2 mm nodule right upper lobe (4, image 47). No suspicious nodules are identified. Emphysema: mild Coronary Calcification: none Aortic Arch Calcification: mild Potentially Significant Incidentals : none Additional Chest Findings: There is no pleural or pericardial effusion. No mediastinal or axillary lymphadenopathy is identified. Visualized upper abdomen: The visualized portions of the liver, spleen, and adrenals have an unremarkable unenhanced appearance. There is cholelithiasis. CT/CT lung screening IMPRESSION: No suspicious pulmonary nodules are identified. LUNG-RADS ASSESSMENT: Lung-RADS 2: Benign MANAGEMENT: Continue annual screening with LDCT in 12 months Category S: N/A Electronically signed by: Michael Sweeney MD 05/15/2025 11:07 AM EDT
--- OUTSIDE RECORDS SUMMARY | 2025-05-15 11:05 | XMS_ITS | Patient Health Record ---
Author Organization [facility] Address [address] [place] [address] Care Team Providers Care Dock Coordinator Name Role Phone Justinafelton Ankita Primary Care Provider Unavailab Michael Ortega Unavailable [phone] Reason For Referral No Information Medications Medication SIG (Take, Route, Frequency, Duration) Notes Start Date End Date Status Lisinopril-hydroCHLOROthiaz lele 20-25 MG TAKE 1 TABLET BY MOUTH EVERY DAY Oral for 90 Active MoviPrep 100 GM as directed Orally a s directed for 1 dose 10/03/2014 Active Pravastatin Sodium 40 MG TAKE 1 TABLET B Y MOUTH EVERY NIGHT AT BEDTIME Oral for 90 Active Problems Problem Type SNOMED Code ICD Code Onset Dates Problem Status W/U Status Risk Notes Problem Pre-surgery evaluation (992134017) Other specified pre-operative examination (V72.83) Active confirmed Problem Colon cancer screening (V76.51) Active confirmed Problem History of adenomatous polyp of colon (665906636) History of adenomatous polyp of colon (V12.72) Active confirmed Plan Of Treatment Future Test Test Name Order Date COLONOSCOPY 10/02/2014 Insurance Providers Payer Name Payer Address Payer Phone Subscriber Number Group Number Insured Name Patient Relationship to Insured Coverage Start Date Coverage End Date [facility] [address] [place], [place] [id number] [phone] [id number] HORACE DUMONT Self - patient is the insured Medical (General) History Medical History History ICD Code tubular adenomas removed in 2004 and 200 9 Denies [place],DM,CVA,Lung disease,renal dise ase HTN Hyperlipidemia COPD-on no meds Surgical History Surgery Date(Month/Year) Left hip replacement in 2011--Dr. Evangelista
== END 2025-05-15 10:18 | disposition home or self-care (01) ==
LOC: HO.CT 10:17
PROVIDERS: PCP Internal Medicine; Visit Provider Internal Medicine Pulmonary Disease
DX: Z12.2 Encounter for screening for malignant neoplasm of respiratory organs (principal); Z87.891 Personal history of nicotine dependence
CPT/HCPCS: 71271

== ENCOUNTER → 2025-05-15 10:18 | Outpatient (BNV) | payer MEDICARE, SELFPAY | PROVIDERS: PCP Internal Medicine; Visit Provider Radiology Diagnostic Radiology | DX: Z87.891 Personal history of nicotine dependence (principal) | CPT/HCPCS: 71271 ==

== ENCOUNTER 2025-07-05 11:47 | Outpatient (REF) | payer MEDICARE, SELFPAY ==
[2025-07-05 12:08] LABS: MANUAL DIFF FLAG NO
[2025-07-05 12:48] LABS: Hematocrit 48.3 % (42.0-52.0); Hemoglobin 16.3 g/dl (14.0-18.0); Imm Gran Abs Auto 0.03 X10*3/uL (0.00-0.03); Imm Gran Pct Auto 0.4 % (0.0-0.4); Lymphocytes Absolute Auto 1.4 X10*3/uL (1.2-4.9); Mean Corpuscular HGB Conc 33.7 g/dl (31.0-36.0); Mean Corpuscular Hemoglobin 34.0 pg (27.0-33.0); Mean Corpuscular Volume 100.8 fL (80.0-98.0); NRBC Abs Auto 0.000 X10*3/uL (0.0-0.012); NRBC Pct Auto 0.0 /100WBC (0.0-0.2); Platelet Count 330 X10*3/uL (160-400); Red Blood Count 4.79 X10*6/uL (4.60-5.80); White Blood Count 6.9 X10*3/uL (4.8-10.8)
[2025-07-05 13:47] LABS: Alanine Aminotransferase 32 U/L (0-40); Albumin Level 4.3 g/dL (3.5-5.0); Alkaline Phosphatase 48 U/L (39-117); Anion Gap 13 (12-20); Aspartate Amino Transferase 34 U/L (5-37); Blood Urea Nitrogen 10 mg/dL (9-16); Calcium 9.2 mg/dL (8.4-10.2); Carbon Dioxide 27 mmol/L (22-29); Chloride 105 mmol/L (96-108); Cholesterol 169 mg/dL (<200); Estimated Glomerular Filt Rate > 60; HDL Cholesterol 59 mg/dL (>40); Potassium 4.5 mmol/L (3.3-5.1); Sodium 140 mmol/L (135-145); Total Protein 7.1 g/dL (6.5-8.0); Triglycerides 78 mg/dL (<150)
--- OUTSIDE RECORDS SUMMARY | 2025-07-05 14:40 | XMS_ITS | Patient Health Record ---
Author Organization [facility] Address [address] [place] [address] Care Team Providers Care Sound Mixer Name Role Phone Ankita Crum Primary Care Provider Unavailab Michael Ortega Unavailable [phone] Reason For Referral No Information Medications Medication SIG (Take, Route, Frequency, Duration) Notes Start Date End Date Status Lisinopril-hydroCHLOROthiaz lele 20-25 MG TAKE 1 TABLET BY MOUTH EVERY DAY Oral; Duration: 90 Active MoviPrep 100 GM as directed Orally a s directed; Duration: 1 dose 10/03/2014 Active Pravastatin Sodium 40 MG TAKE 1 TABLET B Y MOUTH EVERY NIGHT AT BEDTIME Oral; Duration: 90 Active Problems Problem Type SNOMED Code ICD Code Onset Dates Problem Status W/U Status Risk Notes Problem Pre-surgery evaluation (252671994) Other specified pre-operative examination (V72.83) Active confirmed Problem Colon cancer screening (295991284) Colon cancer screening (V76.51) Active confirmed Problem History of adenomatous polyp of colon (694574055) History of adenomatous polyp of colon (V12.72) Active confirmed Plan Of Treatment Future Test Test Name Order Date COLONOSCOPY 10/02/2014 Insurance Providers Payer Name Payer Address Payer Phone Subscriber Number Group Number Insured Name Patient Relationship to Insured Coverage Start Date Coverage End Date [facility] [address] [place], [place] [id number] [phone] [id number] HORACE DUMONT Self - patient is the insured Medical (General) History Medical History History ICD Code tubular adenomas removed in 2004 and 200 9 Denies [place],DM,CVA,Lung disease,renal dise ase HTN Hyperlipidemia COPD-on no meds Surgical History Surgery Date(Month/Year) Left hip replacement in 2011--Dr. Evangelista
== END 2025-07-05 11:48 | disposition home or self-care (01) ==
LOC: HO.LAB 11:47
PROVIDERS: PCP Internal Medicine; Visit Provider Internal Medicine
DX: Z12.5 Encounter for screening for malignant neoplasm of prostate (principal); Z13.1 Encounter for screening for diabetes mellitus; I10 Essential (primary) hypertension; J44.9 Chronic obstructive pulmonary disease, unspecified; K76.0 Fatty (change of) liver, not elsewhere classified; E78.00 Pure hypercholesterolemia, unspecified; D51.9 Vitamin B12 deficiency anemia, unspecified
CPT/HCPCS: 36415; 80053; 80061; 83036; 84153; 85025